=== PATIENT | male | born 1930 | race Caucasian/White ===

== ENCOUNTER 2017-06-12 17:08 | Inpatient (IN) | payer BC, OTHER ==
[~2017-06-12] VITALS: Ht 177.8 cm; Wt 96.2 kg
[2017-06-12 18:49] VITALS: BP 145/73; PULSE 98; TEMP 36.5; Ht 177.8 cm; Wt 96.2 kg
[2017-06-12] MEDS ORDERED: ONDANSETRON INJ 2 MG/ML 2 ML VIAL IV PRN (19:00)
[2017-06-12] MEDS ORDERED: MAGNESIUM HYDROXIDE SUSP 30 ML UDC PO PRN (19:00)
[2017-06-12] MEDS ORDERED: POLYETHYLENE (MIRALAX) 17 GM PACK PO PRN (19:00)
[2017-06-12] MEDS ORDERED: ALUMINUM/MAGNESIUM/SIMETH (MAALOX MAX) 30 ML UDC PO PRN (19:00)
[2017-06-12] MEDS ORDERED: DIGO30TA PO (19:10)
[2017-06-12] MEDS ORDERED: ASPEC81 PO (19:10)
[2017-06-12] MEDS ORDERED: FIBER PO (19:10)
[2017-06-12] MEDS ORDERED: MULT-190 PO (19:10)
[2017-06-12] MEDS ORDERED: FURO-85 PO (19:10)
[2017-06-12] MEDS ORDERED: GLC/500 PO (19:10)
[2017-06-12] MEDS ORDERED: MULT-589 PO (19:10)
[2017-06-12] MEDS ORDERED: CRD200 PO (19:10)
[2017-06-12] MEDS ORDERED: TAMS0.4C38 PO (19:10)
[2017-06-12] MEDS ORDERED: FERR324T PO (19:10)
[2017-06-12] MEDS ORDERED: FAMO20TA9 PO (19:10)
[2017-06-12] MEDS ORDERED: DOCU-94 PO (19:10)
[2017-06-12] MEDS ORDERED: CARB25TA12 PO (19:10)
[2017-06-12] MEDS ORDERED: LORA10TA5 PO (19:10)
[2017-06-12] MEDS ORDERED: TPRSR25 PO (19:10)
[2017-06-12] MEDS ORDERED: FINA5TAB4 PO (19:10)
[2017-06-12] MEDS ORDERED: PATIENT'S ALLERGY INFO NEEDS ENTERED SCH (19:15)
--- NOTE | 2017-06-12 19:23 | History and Physical ---
History & Physical Date of Service Jun 12, 2017. History & Physical admit #[id number]
[2017-06-12 20:00] VITALS: O2SAT 87
--- NOTE | 2017-06-12 20:37 | HISTORY & PHYSICAL EXAMINATION ---
DATE OF ADMISSION: 06/12/2017 ADMISSION HISTORY AND PHYSICAL CHIEF COMPLAINT: Hematuria. HISTORY OF PRESENT ILLNESS: The patient is a very pleasant 86-year-old male transferred up from [facility] due to lack of urology services of that facility. He had presented to [facility]'s ER on June 09 with what appeared to be an acute exacerbation of chronic systolic CHF. Initially, there was concern on PE in the ER because of an elevated D-dimer and he was given 1.5 mg/kg of Lovenox subQ x1, but then whenever it was determined that he was really in more of a CHF exacerbation, this was not continued, but he was given Lasix and he had had a Dodd placed. Unfortunately, with all of this, he has had rather significant hematuria and for several days now at [facility] while his CHF exacerbation has been improving to where today even feels like his breathing is basically back to his normal. He is continuing to have gross hematuria, clots and even a degree of bladder obstruction in spite of the Dodd catheter and in spite of days of continuous bladder irrigation. Urology was consulted to see him there and unfortunately at the service that is not there everyday of the week and for whatever reason the urologist who was going to be seeing him there was not able to be there and because of the ongoing hematuria and the need for urology evaluation, we have to accept him in transfer. He notes from a shortness of breath standpoint, he basically feels like his normal self again, his breathing is at his baseline, he has no chest pain or pressure. He feels pretty good. His only real complaint is the hematuria. REVIEW OF SYSTEMS: Negative except for as above. PAST MEDICAL HISTORY: Includes chronic systolic CHF with an EF around 20-25%, coronary artery disease for the previously totally occluded RCA on catheterization in 2014, only mild disease on the left at that time; type 2 diabetes, CKD stage III, parkinsonism, memory difficulties, BPH, hyperlipidemia, mitral regurge and moderately increased pulmonary artery pressure. HOME MEDICATIONS: Claritin 10 mg daily, Flomax 0.4 at bedtime, iron 325 daily, amiodarone 200 mg b.i.d., digoxin 0.125 every other day, metoprolol 12.5 b.i.d., aspirin 81 mg daily, Sinemet 25/100 q.i.d., Lasix 20 mg daily, Fiber-Lax 2 tabs daily, Colace 100 mg b.i.d., Pepcid 20 mg daily, metformin 500 mg daily, multivitamin daily, Proscar 5 mg daily, and PreserVision 1 capsule b.i.d. On review of his medication list at [facility], it looks like he was given additional Lasix IV once and that improved his CHF as otherwise it appears predominantly he was being maintained on his home medication list. ALLERGIES: LISTED PENICILLIN, ATENOLOL, CHRISTOPHER INHIBITORS, AMLODIPINE, ATORVASTATIN, CLONIDINE, FELODIPINE, GEMFIBROZIL, NIACIN, RED DYE AND YELLOW DYE, although the reactions to almost everything are uncertain WITH THE EXCEPTION OF ATENOLOL BEING LISTED A REACTION OF BRADYCARDIA. SOCIAL HISTORY: He does not smoke or drink. He lives at [facility]. Previously, he was a resident of [facility] and worked at [employer]. FAMILY HISTORY: Both sides with diabetes. Dad had an VT. PAST SURGICAL HISTORY: Heart catheterization as above and a surgical repair of the right arm after an accident. PHYSICAL EXAMINATION: VITAL SIGNS: His most recent vitals I confined from [facility] showed a temp of 97.6, heart rate 71, blood pressure 115/53, 99% on 3 liters, respiratory rate 20. GENERAL: He is awake, alert, oriented x3, pleasant, in no acute distress. HEENT: Normocephalic, atraumatic. Mucous membranes are moist. CARDIOVASCULAR: Irregularly irregular with a rate control; no rubs, murmurs, or gallops, although it is somewhat distant. LUNGS: Somewhat diminished at the left base without rales, rhonchi or wheezes, otherwise clear to auscultation bilaterally. No rales, rhonchi, or wheezes with good effort. ABDOMEN: Soft, nondistended, nontender, no masses or organomegaly. GENITOURINARY: He has a Dodd catheter in place with grossly bloody urine. No clots at this time. EXTREMITIES: Show no cyanosis, clubbing or edema. No calf tenderness. SKIN: Shows no rashes, no pallor or icterus. NEUROLOGIC: Shows cranial nerves II-XII to be grossly intact. Gross motor and sensory are intact. He is somewhat slow to respond, has a little bit of a quiet voice and a little bit of a masked face. MUSCULOSKELETAL: Yields no gross lesions. MENTAL STATE: Shows good recent and remote recall overall normal mood and affect, good judgment and insight. LABORATORIES AND DIAGNOSTICS: His most recent labs and diagnostics showed EKG with sinus at 81, borderline first degree AV block, no notable ischemic changes. Most recent basic metabolic panel yesterday showed a sodium 145, potassium 4.3, chloride 109, CO2 27, BUN 49, creatinine 1.7 that appears to be around what his baseline has been running during that hospital stay, mag of 2.4, calcium 8.2. His most recent CBC shows a white count of 7.8, hemoglobin 8.4 with an MCV of 102.3, platelets of 76, which I am told this is his stable baseline. ASSESSMENT AND PLAN: 1. Hematuria. It appears likely due to benign prostatic hypertrophy, Dodd placement and anticoagulation. His anticoagulation has been held for days. He has been on continuous bladder irrigation for at least a day, maybe more, according to the hospitalist at [facility] and at this point in time they needed urology intervention, which was not available. Will continue bladder irrigation and hold his aspirin as well and ask urology to see him and continue to follow him clinically. Nothing about this appears infectious, but will obviously follow closely. 2. Acute on chronic systolic congestive heart failure. He now appears to be back to his baseline. Will simply continue his home medications. 3. Coronary artery disease with ischemic cardiomyopathy. He is asymptomatic. Continue his home medications. 4. Type 2 diabetes, with his chronic kidney disease, we will be holding his metformin. Check an A1c. Hopefully, be able to discontinue all diabetes medications if his A1c is reasonable for his age and comorbidities. In the meantime, check fingersticks and supplemental insulin as needed. 5. Chronic kidney disease stage III, appears to be around his baseline. 6. Macrocytic anemia. Appears stable, will obviously want to continue to follow with the hematuria and with macrocytosis. We will check a B12 and a folate. 7. Hypocalcemia. Check a vitamin D. 8. Deep venous thrombosis prophylaxis. Pharmacologic is obviously contraindicated due to his hematuria. Mechanical prophylaxis would be of dubious benefit and possible harm including skin breakdown and fall risk. 9. Paroxysmal atrial fibrillation. Continue his beta meghna. He has clearly had multiple discussions with his typewriter operator automatic, Dr. Greco, and clearly does not want any anticoagulation long-term, in the short term it is certainly not possible anyway because of his hematuria. 10. Benign prostatic hypertrophy, right now he has got a Dodd drainage, but we will maintain his Flomax. 11. Disposition: He was admitted to telemetry because of the fact that that was the unit he was at the [facility] and they are continuing to monitor him closely for his congestive heart failure. He does look stable enough that as long as this is truly his new steady state, likely will be able to move him to med/surge over the coming hours.
[2017-06-12] MEDS: INSULIN ASPART 100 UNITS/ML 3 ML PEN SC SCH (21:00)
[2017-06-12] MEDS: DOCUSATE SODIUM 100 MG CAP PO SCH (21:08)
[2017-06-12] MEDS: FAMOTIDINE 20 MG TAB PO SCH (21:09)
[2017-06-12] MEDS: CARBIDOPA/LEVODOPA 25/100MG TAB PO SCH (21:09)
[2017-06-12] MEDS: AMIODARONE 200 MG TAB PO SCH (21:09)
[2017-06-12] MEDS: METOPROLOL SUCC 25MG EXT REL TAB PO SCH (21:10)
[2017-06-12 21:14] VITALS: BP 128/57; PULSE 93; O2SAT 87
[2017-06-12 23:33] VITALS: BP 113/63; PULSE 95; TEMP 36.6; O2SAT 98
[2017-06-13] VITALS (9 sets, daily range): BP systolic 117–143; BP diastolic 49–74; PULSE 88–108; TEMP 36.7–37.9; O2SAT 93–96
[2017-06-13 06:10] LABS: BASO % 0.1 %; BASO ABS # 0.01 K/uL (0-0.2); BUN/CREATININE RATIO 25.4 (10-20); CALCIUM 8.7 mg/dl (8.5-10.1); COMPLETE YES; CREATININE 1.5 mg/dl (0.60-1.40); EOS % 0.6 %; HEMATOCRIT 28.8 % (42-52); IG% 0.9 %; LYMPH % 6.3 %; LYMPH ABS # 0.63 K/uL (1.2-3.4); MEAN CELL VOLUME 102.5 fL (80-100); MEAN CORPUSCULAR HEMOGLOBIN 32.4 pg (25-34); MEAN CORPUSCULAR HGB CONC 31.6 g/dl (32-36); MEAN PLATELET VOLUME 13.7 fL (7.4-10.4); MONO % 6.6 %; NEUT % 85.5 %; PLATELET COUNT 104 K/uL (130-400); PLT ESTIMATE DECREASED; RED BLOOD COUNT 2.81 M/uL (4.7-6.1)
[2017-06-13] MEDS: INSULIN ASPART 100 UNITS/ML 3 ML PEN SC SCH ×4 (07:00→20:12)
[2017-06-13 07:09] LABS: ESTIMATED AVERAGE GLUCOSE 117 mg/dl; HA1C FLAG Normal (Normal)
[2017-06-13] MEDS: MULTIVITAMIN TAB PO SCH (07:54)
[2017-06-13] MEDS: FERROUS GLUCONATE 324 MG TAB PO SCH (07:54)
[2017-06-13] MEDS: FINASTERIDE 5 MG TAB PO SCH (07:54)
[2017-06-13] MEDS: CALCIUM POLYCARBOPHIL 1 TAB PO SCH (07:54)
[2017-06-13] MEDS: LORATADINE 10 MG TAB PO SCH (07:55)
[2017-06-13] MEDS: FUROSEMIDE 20 MG TAB PO SCH (07:55)
[2017-06-13] MEDS: CEROVITE ADV FORMULA TAB PO SCH (07:55)
[2017-06-13] MEDS: TAMSULOSIN HCL 0.4 MG CAP PO SCH (07:55)
[2017-06-13] MEDS: METOPROLOL SUCC 25MG EXT REL TAB PO SCH ×2 (07:55→20:20)
[2017-06-13] MEDS: AMIODARONE 200 MG TAB PO SCH ×2 (07:56→20:14)
[2017-06-13] MEDS: DOCUSATE SODIUM 100 MG CAP PO SCH ×2 (07:56→20:13)
[2017-06-13] MEDS: FAMOTIDINE 20 MG TAB PO SCH ×2 (07:56→20:15)
[2017-06-13] MEDS: CARBIDOPA/LEVODOPA 25/100MG TAB PO SCH ×4 (07:56→20:15)
--- NOTE | 2017-06-13 09:23 | Clinical Documentation Query ---
LEYLA Valentin : CLINICAL DOCUMENTATION QUERY Documentation includes "Acute on chronic systolic congestive heart failure. He now appears to be back to his baseline. Will simply continue his home medications". As appropriate, consider documentation as suggested below as capture of the acuity of this diagnosis may not be appropriate as documented in the H&P, and may not stand up to external audit/be denied for reimbursement and reporting purposes. In your clinical opinion is this patient being managed for: (x ) Chronic systolic CHF ( ) Not Agree ( ) Other explanation of clinical findings (Please Explain) ( ) Unable to determine (Please Define) ( ) Need to Discuss The medical record reflects the following clinical findings, treatment, and risk factors. Please clarify and document your clinical opinion in the progress notes and discharge summary. Terms such as "probable", "suspected", "likely", "questionable", "possible", or "still to be ruled out" are acceptable. IF IN AGREEMENT, YOU MUST DOCUMENT ABOVE DIAGNOSTIC STATEMENT IN DAILY PROGRESS NOTES AND DISCHARGE SUMMARY. This document is not part of the patient's record. Thank You, Scout Hawk, RN [phone]
--- NOTE | 2017-06-13 10:25 | DIAGNOSTIC IMAGING REPORT ---
ABDOMEN AND PELVIS CT WITHOUT CONTRAST CT DOSE: 1693.69 mGy.cm HISTORY: gross hematuria; CR 1.5 TECHNIQUE: Multiaxial CT images of the abdomen and pelvis were performed without the use of intravenous and oral contrast according to the standard department stone protocol. A dose lowering technique was utilized adhering to the principles of ALARA. COMPARISON STUDY: None. FINDINGS: The heart is mildly enlarged. Small bilateral pleural effusions which results in partial compressive atelectasis of the bilateral lower lobes. Small fat-containing bilateral inguinal hernias. Left L5 spondylolysis. No suspicious lytic or blastic osseous lesions. Multiple hypodense lesions seen throughout the liver with the dominant lesion within the right hepatic lobe measuring 5 cm. These are highly suspicious for metastatic disease. The spleen, right adrenal gland are unremarkable. Nodular appearance to the left adrenal gland. Hyperdense material within the gallbladder favors small stones. Calcifications within the kidneys appear to represent vascular calcifications. No definite renal or ureteral calculi. No hydronephrosis. There is an IVC filter present. There are 2 small cystic foci within the body of the pancreas. These measure 10 and 11 mm in size. No pancreatic duct dilatation. No retroperitoneal lymphadenopathy. Subcentimeter periportal lymph nodes do not meet CT criteria for pathologic involvement. The prostate gland is enlarged measuring 6.8 cm. Dodd catheter within the bladder. Hyperdense material within the bladder lumen consistent with blood products in the setting of hematuria. Small amount of gas within the bladder due to the catheterization. Moderate bladder wall thickening with mild surrounding fat stranding. No evidence for bowel obstruction. Questionable thickening within the ascending colon near the ileocecal valve. There is also focal area of soft tissue prominence at the ileocolic lymph node station best seen on image 243. This could represent developing ileocolic lymphadenopathy. Prominent right common iliac lymph node which contains fat. This measures 15 x 12 mm. IMPRESSION: 1. Multiple hepatic masses. This is consistent with metastatic disease until present otherwise. 2. Small area of ill-defined soft tissue prominence at the right ileocolic station raises the possibility of developing lymphadenopathy. There is also questionable thickening within the ascending colon near the ileocecal valve. This is difficult to assess due to the lack of contrast but raises the possibility of a colonic mass as the primary malignancy. Colonoscopy is recommended for further evaluation. 3. Moderate thickening of the bladder wall with mild surrounding fat stranding. There is also small amount of hemorrhage within the bladder consistent with the patient's history of hematuria. 4. No renal or ureteral stones. No hydronephrosis. 5. Enlarged prostate. 6. Small bilateral pleural effusions. 7. There are 2 small cystic foci/lesions within the pancreatic body with the largest measuring 11 mm. 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 8. Additional findings as described above. Electronically signed by: Alexander Espinal M.D. 06/13/2017 10:24 AM Dictated Date/Time: 06/13/2017 10:07 AM
[2017-06-13] MEDS: ERGOCALCIFEROL 50,000 INTER.UNIT CAP PO SCH (12:20)
--- NOTE | 2017-06-13 14:19 | Urology Consultation ---
History General Date of Service: Jun 13, 2017. Chief Complaint: gross hematuria Primary Care Physician: No Doctor, Assigned Pt seen a urologist before?: Yes (Dr. Serrano, Dr. Jarocho Gallegos, urology at [facility]) If yes, why?: BPH, elevated PSA History of Present Illness 86 yo male accepted as transfer from [facility] d/t gross hematuria and lack of daily urology service there. Currently with mayberry catheter in place and CBI running. Mayberry draining yellow- light orange urine. Per the pt, the hematuria started ~3 days ago. H&H of 9.1 and 28.8. Cr noted to be 1.5. He has a hx of CKD stage III. The pt denies pain this morning. He has seen urology in the past for BPH with incomplete bladder emptying and elevated PSA. Per the pt, he has seen Dr. Serrano, Dr. Jarocho Gallegos, and another urologist near [facility]. Per my records, he last saw Dr. Gallegos in 2015 for BPH with incomplete emptying and elevated PSA. PVR at that time noted to be 200ml. He remains on maximal medical therapy of tamsulosin and finasteride for his BPH. PSA while inpatient noted to be 10.5. Per previous records, it has been as high as 12 at one point, and the pt has had multiple negative prostate biopsies. I have ordered a CT, cytology, and UC&S while inpatient for further evaluation of his gross hematuria. CT scan showing suspected metastatic colon cancer. Findings discussed with Dr. Mabry. Dr. Mabry waiting to discuss with the pt when his son is available. Imaging Imaging: CT Laboratory Last 24 Hours Test 06/12/17 20:33 06/13/17 05:10 06/13/17 06:46 06/13/17 11:47 Bedside Glucose 151 mg/dl 157 mg/dl 135 mg/dl White Blood Count 10.00 K/uL Red Blood Count 2.81 M/uL Hemoglobin 9.1 g/dL Hematocrit 28.8 % Mean Corpuscular Volume 102.5 fL Mean Corpuscular Hemoglobin 32.4 pg Mean Corpuscular Hemoglobin Concent 31.6 g/dl Platelet Count 104 K/uL Mean Platelet Volume 13.7 fL Neutrophils (%) (Auto) 85.5 % Lymphocytes (%) (Auto) 6.3 % Monocytes (%) (Auto) 6.6 % Eosinophils (%) (Auto) 0.6 % Basophils (%) (Auto) 0.1 % Neutrophils # (Auto) 8.55 K/uL Lymphocytes # (Auto) 0.63 K/uL Monocytes # (Auto) 0.66 K/uL Eosinophils # (Auto) 0.06 K/uL Basophils # (Auto) 0.01 K/uL RDW Standard Deviation 60.6 fL RDW Coefficient of Variation 16.2 % Immature Granulocyte % (Auto) 0.9 % Immature Granulocyte # (Auto) 0.09 K/uL Platelet Estimate DECREASED Red Blood Cell Morphology Unremarkable Sodium Level 146 mmol/L Potassium Level 4.0 mmol/L Chloride Level 111 mmol/L Carbon Dioxide Level 29 mmol/L Anion Gap 6.0 mmol/L Blood Urea Nitrogen 38 mg/dl Creatinine 1.50 mg/dl Est Creatinine Clear Calc Drug Dose 40.4 ml/min Estimated GFR () 47.8 Estimated GFR (Non- 41.3 BUN/Creatinine Ratio 25.4 Random Glucose 158 mg/dl Estimated Average Glucose 117 mg/dl Hemoglobin A1c 5.7 % Calcium Level 8.7 mg/dl Prostate Specific Antigen 10.500 ng/ml Vitamin B12 Level 1084 pg/mL 25-Hydroxy Vitamin D Total 15.3 ng/ml Folate > 24.00 ng/mL Digoxin Level 0.6 ng/ml Past History BPH, congestive heart failure, coronary artery disease, diabetes, high cholesterol, other (CKD stage 3, Parkinson's disease, memory issues, mirtral regurgitation) Past Surgical History: cardiac catheterization, orthopedic surgery (arm surgery after accident) Family History diabetes, [place] Social History Hx Tobacco Use In Past Year?: No Smoking: non-smoker Alcohol: never Drug use: none Housing status: half-way Occupation status: retired Allergies Coded Allergies: CHRISTOPHER Inhibitors (Unverified Allergy, Unknown, Uncertain, 06/12/17) Amlodipine (Unverified Allergy, Unknown, Uncertain, 06/12/17) Atorvastatin (Unverified Allergy, Unknown, Uncertain, 06/12/17) Clonidine (Unverified Allergy, Unknown, Uncertain, 06/12/17) Felodipine (Unverified Allergy, Unknown, Uncertain, 06/12/17) Gemfibrozil (Unverified Allergy, Unknown, Uncertain, 06/12/17) Niacin (Unverified Allergy, Unknown, Uncertain, 06/12/17) Penicillins (Unverified Allergy, Unknown, Uncertain, 06/12/17) Red Dye (Unverified Allergy, Unknown, Uncertain, 06/12/17) Yellow Dye (Unverified Allergy, Unknown, Uncertain, 06/12/17) Atenolol (Unverified Adverse Reaction, Unknown, BRADYCARDIA, 06/12/17) Medications Home Medications: Home Meds and Scripts Medications Dose Route/Sig Max Daily Dose Days Date Category Ocuvite Preservision (Multivitamins/Minerals) 1 Tab Tab 1 Tab PO DAILY 06/12/17 Rx Proscar (Finasteride) 5 Mg Tab 1 Tab PO DAILY 90 06/12/17 Rx Daily Gregg (Multivitamins) 1 Tab Tab 1 Tab PO DAILY 06/12/17 Rx Glucophage (Metformin Hcl) 500 Mg Tab 500 Mg PO DAILY 06/12/17 Rx Pepcid (Famotidine) 20 Mg Tab 1 Tab PO BID 30 06/12/17 Rx Colace (Docusate Sodium) 100 Mg Cap 1 Cap PO BID 15 06/12/17 Rx Fiber Laxative (Fiber) Ea 2 Tab PO DAILY 06/12/17 Rx Lasix (Furosemide) 20 Mg Tab 20 Mg PO DAILY 06/12/17 Rx Sinemet 25MG/100MG (Carbidopa/Levodopa) Tab 1 Tab PO QID 06/12/17 Rx Aspirin EC Low Dose (Aspirin) 81 Mg Ectab 1 Tab PO DAILY 06/12/17 Rx Metoprolol Succinate ER (Metoprolol Succinate) 25 Mg Tabcr 0.5 Tab PO BID 06/12/17 Rx Digitek (Digoxin) 0.125 Mg Tab 1 Tab PO Q2D 06/12/17 Rx Amiodarone HCl 200 Mg Tab 200 Mg PO BID 06/12/17 Rx Iron Supplement (Ferrous Gluconate) 324 Mg Tab 324 Mg PO DAILY 06/12/17 Rx Flomax (Tamsulosin Hcl) 0.4 Mg Cap 1 Cap PO DAILY 30 06/12/17 Rx Claritin (Loratadine) 10 Mg Tab 1 Tab PO DAILY 30 06/12/17 Rx Inpatient Medications: Current Inpatient Medications Medications (Trade) Dose Ordered Sig/Aniya Route Start Time Stop Time Status Last Admin Dose Admin Acetaminophen (Tylenol Tab) 650 mg Q4H PRN PO 06/12/17 19:00 07/12/17 18:59 Al Hydrox/Mg Hydrox/Simethicone (Maalox Max Susp) 15 ml Q4H PRN PO 06/12/17 19:00 07/12/17 18:59 Magnesium Hydroxide (Milk Of Magnesia Susp) 30 ml Q12H PRN PO 06/12/17 19:00 07/12/17 18:59 Ondansetron HCl (Zofran Inj) 4 mg Q6H PRN IV 06/12/17 19:00 07/12/17 18:59 Polyethylene (Miralax Powder Packet) 17 gm DAILY PRN PO 06/12/17 19:00 07/12/17 18:59 Amiodarone HCl (Cordarone Tab) 200 mg BID PO 06/12/17 21:00 07/12/17 20:59 06/13/17 07:56 200 MG Carbidopa/Levodopa (Sinemet 25/ 100MG Tab) 1 tab QID PO 06/12/17 21:00 07/12/17 20:59 06/13/17 12:20 1 TAB Digoxin (Lanoxin Tab) 0.125 mg Q2D@1600 PO 06/13/17 16:00 07/13/17 15:59 Docusate Sodium (coLACE CAP) 100 mg BID PO 06/12/17 21:00 07/12/17 20:59 06/13/17 07:56 100 MG Famotidine (Pepcid Tab) 20 mg BID PO 06/12/17 21:00 07/12/17 20:59 06/13/17 07:56 20 MG Ferrous Gluconate (Ferrous Gluconate Tab) 324 mg DAILY PO 06/13/17 09:00 07/13/17 08:59 06/13/17 07:54 324 MG Finasteride (Proscar Tab) 5 mg DAILY PO 06/13/17 09:00 07/13/17 08:59 06/13/17 07:54 5 MG Furosemide (Lasix Tab) 20 mg DAILY PO 06/13/17 09:00 07/13/17 08:59 06/13/17 07:55 20 MG Loratadine (Claritin Tab) 10 mg DAILY PO 06/13/17 09:00 07/13/17 08:59 06/13/17 07:55 10 MG Metoprolol Succinate (Toprol Xl Tab) 12.5 mg BID PO 06/12/17 21:00 07/12/17 20:59 06/13/17 07:55 12.5 MG Multivitamins (Multivitamin Tab) 1 tab DAILY PO 06/13/17 09:00 07/13/17 08:59 06/13/17 07:54 1 TAB Multivitamins/ Minerals (Multivitamin W/ Minerals Tab) 1 tab DAILY PO 06/13/17 09:00 07/13/17 08:59 06/13/17 07:55 1 TAB Tamsulosin HCl (Flomax Cap) 0.4 mg DAILY PO 06/13/17 09:00 07/13/17 08:59 06/13/17 07:55 0.4 MG Calcium Polycarbophil (Fibercon Tab) 2 tab DAILY PO 06/13/17 09:00 07/13/17 08:59 06/13/17 07:54 2 TAB Insulin Aspart (novoLOG ASPART) SLIDING SCALE G... ACHS SC 06/12/17 21:00 07/12/17 20:59 Ergocalciferol (Vitamin D Cap) 50,000 interunit TuTh@0900 PO 06/13/17 11:00 07/13/17 10:59 06/13/17 12:20 50,000 INTERUNIT Furosemide 20 mg/ Syringe 2 ml @ 4 mls/min 1600 ONCE IV 06/13/17 16:00 06/13/17 16:01 Review of Systems Review of Systems Constitutional: No fever, No chills Eyes: No double vision Neurological: No dizzy Endocrine: No excessive thirst Gastrointestinal: No abdominal pain, No nausea, No vomiting Cardiovascular: No chest pain Respiratory: No shortness of breath Skin: No rash Musculoskeletal: + arthritis Male : + blood in urine Physical Exam Vital Signs: Vital Signs Past 12 Hours Date Time Temp Pulse Resp B/P (MAP) Pulse Ox O2 Delivery O2 Flow Rate FiO2 06/13/17 12:00 Nasal Cannula 2.0 06/13/17 11:49 37.1 108 20 140/59 (86) 96 Nasal Cannula 2.0 06/13/17 08:00 Nasal Cannula 2.0 06/13/17 07:23 36.7 105 20 143/74 (97) 95 Nasal Cannula 2.0 06/13/17 04:24 37.5 100 18 128/62 (84) 95 Nasal Cannula 1.0 06/13/17 04:00 Nasal Cannula 1.0 Physical Exam: General Appearance: no apparent distress Eyes: bilateral eyes normal inspection ENT: hearing grossly normal Neck: no JVD Respiratory/Chest: no respiratory distress, no accessory muscle use Cardiovascular: no JVD Extremities: normal inspection Neurologic/Psychiatric: alert, normal mood/affect, oriented x 3 Skin: normal color Assessment & Plan Assessment & Plan A/P: Gross hematuria, BPH AFVSS. Hematuria improving. Will continue CBI today. I have asked the nursing staff to hand irrigate the mayberry catheter qshift and PRN for clots. Continue to monitor H&H. Supportive management with transfusions PRN. Will await cytology and UC&S results. The pt will likely need cysto to complete his hematuria evaluation, but his probable metastatic colon cancer is a priority to be addressed at this time. No surgical management planned at this time. The pt may be provided a diet when OK with primary service. Continue finasteride and tamsulosin. Thanks for the consult. Will continue to follow along with primary service.
[2017-06-13] MEDS: DIGOXIN 0.125 MG TAB PO SCH (15:29)
[2017-06-13] MEDS: ACETAMINOPHEN 325 MG TAB PO PRN (15:38)
[2017-06-13] MEDS ORDERED: FUROSEMIDE INJ 20 MG in SYRINGE 0 ML IV ONE (16:00)
--- NOTE | 2017-06-13 20:54 | Progress Note ---
Subjective Date of Service: Jun 13, 2017. Subjective Pt evaluation today including: conversation w/ patient (twice today), conversation w/ family (son, Dakota, by phone twice today), physical exam, chart review, lab review, review of studies (records from [facility] reviewed; CT scan reviewed here), conversation w/ apartment leasing consultant (radiology, urology), review of inpatient medication list Pain: denies any abd pain or pelvic pain PO Intake: no issues Voiding: mayberry catheter in place (with CBI) tele overnight with juan loco, rates mainly controlled he denies any recent overt GI bleeding (BRBPR or melena) has had bowel habit changes and issues with constipation no apparent weight loss and appetite has been ok back at [facility] in [place] still with O2 requirement and still with mild dyspnea no chest pain Review of Systems Constitutional: No fever, No chills Respiratory: + dyspnea at rest, No cough Cardiac: + orthopnea, No chest pain Abdomen: + constipation, No pain, No nausea, No vomiting, No diarrhea, No GI bleeding Objective Vital Signs Date Time Temp Pulse Resp B/P (MAP) Pulse Ox O2 Delivery O2 Flow Rate FiO2 06/13/17 20:17 104 122/55 (77) 06/13/17 19:40 36.8 103 18 117/49 (71) 93 Nasal Cannula 2.0 06/13/17 17:19 37.9 06/13/17 16:00 95 Nasal Cannula 2.0 06/13/17 15:30 37.3 88 16 117/49 (71) 95 Nasal Cannula 2.0 06/13/17 15:29 76 06/13/17 12:00 Nasal Cannula 2.0 06/13/17 11:49 37.1 108 20 140/59 (86) 96 Nasal Cannula 2.0 06/13/17 08:00 Nasal Cannula 2.0 06/13/17 07:23 36.7 105 20 143/74 (97) 95 Nasal Cannula 2.0 06/13/17 04:24 37.5 100 18 128/62 (84) 95 Nasal Cannula 1.0 06/13/17 04:00 Nasal Cannula 1.0 06/12/17 23:59 Nasal Cannula 1.0 06/12/17 23:33 36.6 95 18 113/63 (80) 98 Nasal Cannula 1.0 06/12/17 21:14 93 128/57 (80) 87 Room Air Physical Exam General Appearance: no apparent distress ENT: pharynx normal, + pertinent finding (hearing aids in place) Neck: + JVD Respiratory/Chest: no respiratory distress, no accessory muscle use, + rales ( bibasilar) Cardiovascular: no gallop, + systolic murmur (LSB), + irregularly irregular Abdomen: normal bowel sounds, non tender, soft, no organomegaly Extremities: + pedal edema (trace b/l ) Neurologic/Psychiatric: alert, oriented x 3 Laboratory Results Last 24 Hours Test 06/13/17 05:10 06/13/17 06:46 06/13/17 11:47 06/13/17 16:16 White Blood Count 10.00 K/uL Red Blood Count 2.81 M/uL Hemoglobin 9.1 g/dL Hematocrit 28.8 % Mean Corpuscular Volume 102.5 fL Mean Corpuscular Hemoglobin 32.4 pg Mean Corpuscular Hemoglobin Concent 31.6 g/dl Platelet Count 104 K/uL Mean Platelet Volume 13.7 fL Neutrophils (%) (Auto) 85.5 % Lymphocytes (%) (Auto) 6.3 % Monocytes (%) (Auto) 6.6 % Eosinophils (%) (Auto) 0.6 % Basophils (%) (Auto) 0.1 % Neutrophils # (Auto) 8.55 K/uL Lymphocytes # (Auto) 0.63 K/uL Monocytes # (Auto) 0.66 K/uL Eosinophils # (Auto) 0.06 K/uL Basophils # (Auto) 0.01 K/uL RDW Standard Deviation 60.6 fL RDW Coefficient of Variation 16.2 % Immature Granulocyte % (Auto) 0.9 % Immature Granulocyte # (Auto) 0.09 K/uL Platelet Estimate DECREASED Red Blood Cell Morphology Unremarkable Sodium Level 146 mmol/L Potassium Level 4.0 mmol/L Chloride Level 111 mmol/L Carbon Dioxide Level 29 mmol/L Anion Gap 6.0 mmol/L Blood Urea Nitrogen 38 mg/dl Creatinine 1.50 mg/dl Est Creatinine Clear Calc Drug Dose 40.4 ml/min Estimated GFR () 47.8 Estimated GFR (Non- 41.3 BUN/Creatinine Ratio 25.4 Random Glucose 158 mg/dl Estimated Average Glucose 117 mg/dl Hemoglobin A1c 5.7 % Calcium Level 8.7 mg/dl Prostate Specific Antigen 10.500 ng/ml Vitamin B12 Level 1084 pg/mL 25-Hydroxy Vitamin D Total 15.3 ng/ml Folate > 24.00 ng/mL Digoxin Level 0.6 ng/ml Bedside Glucose 157 mg/dl 135 mg/dl 128 mg/dl Test 06/13/17 20:10 Bedside Glucose 164 mg/dl Assessment and Plan 86yo male: 1. gross hematuria - this occurred in the setting of recent mayberry catheter placement (was difficult by history, likely due to BPH) and use of systemic anticoagulation (lovenox 1.5mg/kg per records). The hematuria has improved with CBI and H/H remain stable. Appreciate urology consult. CT abd/pelvis to assess for bladder pathology was negative for such but incidentally showed a possible colonic mass with liver mets (see below). CBC in am. No cystoscopy planned at this time. 2. acute/chronic systolic CHF - EF 20-25% by history - give another dose of IV lasix later today, repeat labs in AM, follow weights/UOP. Cont BB. 3. a. fib - chronically takes digoxin, metoprolol, and amiodarone. Was NOT taking systemic anticoagulation back at [facility]. Rates acceptable at this time. Dig level acceptable. Unsure if amiodarone is being used for rate control or to try & maintain NSR. Will leave as is for now. 4. CKD stage 3 - per records from outside hospital baseline Cr is 1.5-1.8. Repeat BMP am. 5. acute hypoxic resp failure 2nd to #2 - improving. 6. T2DM - novolog SSI for now. 7. macrocytic anemia - b12, folate normal; follow. 8. parkinsonism - continue sinemet. 9. BPH - continue finasteride & flomax. 10. DVT proph - SCDs; chemical means contraindicated due to #1. 11. vitamin D def - replace. 12. ?colonic mass with suspected liver mets - I had a lengthy discussion with the patient and his son. His son was on speaker phone during this discussion. I reviewed the CT results and what this could mean for his health. Discussed options - doing nothing vs attempting colonoscopy for definitive bx vs liver bx. I don't think it would be safe for him to undergo colonoscopy in light of decompensated CHF. Also, even once his CHF is improved, he would still be a poor colonoscopy candidate. If definitive dx is truly desired by the patient then radiology-assisted liver bx might be safest option. Will obtain RUQ u/s to further characterize liver lesions. 13. thrombocytopenia - recheck CBC am. 14. CAD - noted; no ischemic symptoms at this time. Will need PT, OT total time today about 60 minutes including 30 minute discussion with pt & his son, 20 minutes reviewing records, 10 minutes with exam/etc Continued [facility] stay due to: voiding difficulties, ambulation difficulties, multiple IV medications needed Discharge planning: [facility] facility
[2017-06-14] VITALS: BP 134/61; PULSE 94; TEMP 37.1; O2SAT 96
[2017-06-14 04:00] VITALS: BP 117/55; PULSE 98; TEMP 36.4; O2SAT 95
[2017-06-14 06:47] LABS: INR 1.1 (0.9-1.1)
--- NOTE | 2017-06-14 07:08 | DIAGNOSTIC IMAGING REPORT ---
ULTRASOUND RIGHT UPPER QUADRANT ABDOMEN CLINICAL HISTORY: Liver lesions seen by CT. COMPARISON STUDY: Abdominal CT dated 06/13/2017. TECHNIQUE: Real-time, grayscale, and color flow sonography of the right upper quadrant of the abdomen was performed. Images are reviewed in the transverse and longitudinal planes. FINDINGS: Liver: The liver is enlarged and demonstrates heterogeneously increased echotexture consistent with hepatic steatosis. There is no intrahepatic biliary ductal dilatation. The main portal vein is patent. There are numerous (greater than 20) hypoechoic hepatic lesions identified. The largest is in the left lobe and measures up to 5.0 cm. Gallbladder: Biliary sludge is identified. Small gallstones are suspected. There is no gallbladder wall thickening or pericholecystic fluid. A sonographic Ibrahim's sign is reportedly absent. The common bile duct measures up to 0.5 cm in diameter. Pancreas: There are hypoechoic ovoid nodules in the pancreas which measure up to 1.6 cm. 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 Visualized portions of the pancreatic head and body are otherwise normal in appearance. The splenic vein is patent. Right kidney: Survey images of the right kidney demonstrate cortical atrophy. There is no hydronephrosis. Ascites: None. IMPRESSION: 1. The liver is enlarged and steatotic. 2. There are numerous hypoechoic hepatic lesions identified. This corresponds to the abnormal CT finding. These lesions should be considered metastatic disease until proven otherwise. 3. Cholelithiasis and biliary sludge. There is no sonographic evidence of acute cholecystitis. 4. Hypoechoic ovoid lesions are seen in the pancreas. When correlated with yesterday's CT scan these likely represent small sidebranch IPMN's and are of doubtful significance. Electronically signed by: Stefan Bean M.D. 06/14/2017 7:07 AM Dictated Date/Time: 06/14/2017 7:02 AM
[2017-06-14 07:17] LABS: BUN/CREATININE RATIO 20.4 (10-20); CALCIUM 8.5 mg/dl (8.5-10.1); CREATININE 1.8 mg/dl (0.60-1.40)
[2017-06-14 07:26] LABS: HEMATOCRIT 27.3 % (42-52); MEAN CELL VOLUME 102.6 fL (80-100); MEAN CORPUSCULAR HEMOGLOBIN 32.7 pg (25-34); MEAN CORPUSCULAR HGB CONC 31.9 g/dl (32-36); MEAN PLATELET VOLUME 12.9 fL (7.4-10.4); PLATELET COUNT 94 K/uL (130-400); RED BLOOD COUNT 2.66 M/uL (4.7-6.1); WHITE BLOOD COUNT 11.35 K/uL (4.8-10.8)
[2017-06-14 07:27] LABS: BASO % 0.1 %; BASO ABS # 0.01 K/uL (0-0.2); COMPLETE YES; EOS % 0.4 %; IG% 0.8 %; LYMPH % 7.2 %; LYMPH ABS # 0.82 K/uL (1.2-3.4); MONO % 6.7 %; NEUT % 84.8 %; PLT ESTIMATE DECREASED; POLYCHROMASIA 1+
[2017-06-14 08:01] VITALS: BP 120/52; PULSE 104; TEMP 37.7; O2SAT 96
[2017-06-14] MEDS: INSULIN ASPART 100 UNITS/ML 3 ML PEN SC SCH ×4 (08:35→20:36)
[2017-06-14] MEDS: FINASTERIDE 5 MG TAB PO SCH (08:39)
[2017-06-14] MEDS: FAMOTIDINE 20 MG TAB PO SCH ×2 (08:39→20:31)
[2017-06-14] MEDS: CARBIDOPA/LEVODOPA 25/100MG TAB PO SCH ×4 (08:39→20:31)
[2017-06-14] MEDS: DOCUSATE SODIUM 100 MG CAP PO SCH ×2 (08:40→20:30)
[2017-06-14] MEDS: CALCIUM POLYCARBOPHIL 1 TAB PO SCH (08:40)
[2017-06-14] MEDS: FERROUS GLUCONATE 324 MG TAB PO SCH (08:40)
[2017-06-14] MEDS: LORATADINE 10 MG TAB PO SCH (08:40)
[2017-06-14] MEDS: MULTIVITAMIN TAB PO SCH (08:40)
[2017-06-14] MEDS: FUROSEMIDE 20 MG TAB PO SCH (08:40)
[2017-06-14] MEDS: CEROVITE ADV FORMULA TAB PO SCH (08:41)
[2017-06-14] MEDS: METOPROLOL SUCC 25MG EXT REL TAB PO SCH ×2 (08:41→20:35)
[2017-06-14] MEDS: AMIODARONE 200 MG TAB PO SCH ×2 (08:41→20:30)
[2017-06-14] MEDS: TAMSULOSIN HCL 0.4 MG CAP PO SCH (08:41)
--- NOTE | 2017-06-14 11:01 | Progress Note ---
Subjective Date of Service: Jun 14, 2017. (Radha King CRNP) Subjective Pt evaluation today including: conversation w/ patient, physical exam, chart review, lab review Voiding: mayberry catheter in place 86 year old male with gross hematuria. This has improved. Pt had CBI running- is currently clamped. Urine is light pink to clear without clot. Mayberry intact. Continues on flomax and finasteride. Urine culture is prelim positive for gm - bacilli. He is on IV ertapenem. H/H slightly dropped. 9.1/28.8 to 8.7/27.3 No transfusions needed. Creatinine is up from yesterday 1.5 to 1.8 Pt denies flank pain. Low grade temp this am. 37.7. Slightly tachcardic. BP is low but not impressive. (Radha King, ISABELLA) Review of Systems Constitutional: + see HPI, No chills ENT: No hearing loss Respiratory: No cough, No shortness of breath Cardiac: No chest pain Abdomen: No pain, No nausea Male : + see HPI, + hematuria (Radha King, ISABELLA) Objective Vital Signs Date Time Temp Pulse Resp B/P (MAP) Pulse Ox O2 Delivery O2 Flow Rate FiO2 06/14/17 08:01 37.7 104 20 120/52 (74) 96 Nasal Cannula 2.0 06/14/17 04:00 Nasal Cannula 2.0 06/14/17 04:00 36.4 98 20 117/55 (75) 95 Nasal Cannula 2.0 06/14/17 00:00 Nasal Cannula 2.0 06/14/17 00:00 37.1 94 20 134/61 (85) 96 Nasal Cannula 2.0 06/13/17 20:17 104 122/55 (77) 06/13/17 20:00 93 Nasal Cannula 2.0 06/13/17 19:40 36.8 103 18 117/49 (71) 93 Nasal Cannula 2.0 06/13/17 17:19 37.9 06/13/17 16:00 95 Nasal Cannula 2.0 06/13/17 15:30 37.3 88 16 117/49 (71) 95 Nasal Cannula 2.0 06/13/17 15:29 76 06/13/17 12:00 Nasal Cannula 2.0 06/13/17 11:49 37.1 108 20 140/59 (86) 96 Nasal Cannula 2.0 (Radha King CRNP) Physical Exam General Appearance: WD/WN, no apparent distress ENT: hearing grossly normal Respiratory/Chest: no respiratory distress, no accessory muscle use Abdomen: soft Extremities: no pedal edema, no calf tenderness Neurologic/Psychiatric: alert, normal mood/affect (Radha King CRNP) Laboratory Results Last 24 Hours Test 06/13/17 11:47 06/13/17 16:16 06/13/17 20:10 06/14/17 06:11 Bedside Glucose 135 mg/dl 128 mg/dl 164 mg/dl White Blood Count 11.35 K/uL Red Blood Count 2.66 M/uL Hemoglobin 8.7 g/dL Hematocrit 27.3 % Mean Corpuscular Volume 102.6 fL Mean Corpuscular Hemoglobin 32.7 pg Mean Corpuscular Hemoglobin Concent 31.9 g/dl Platelet Count 94 K/uL Mean Platelet Volume 12.9 fL Neutrophils (%) (Auto) 84.8 % Lymphocytes (%) (Auto) 7.2 % Monocytes (%) (Auto) 6.7 % Eosinophils (%) (Auto) 0.4 % Basophils (%) (Auto) 0.1 % Neutrophils # (Auto) 9.63 K/uL Lymphocytes # (Auto) 0.82 K/uL Monocytes # (Auto) 0.76 K/uL Eosinophils # (Auto) 0.04 K/uL Basophils # (Auto) 0.01 K/uL RDW Standard Deviation 59.6 fL RDW Coefficient of Variation 16.2 % Immature Granulocyte % (Auto) 0.8 % Immature Granulocyte # (Auto) 0.09 K/uL Nucleated RBC Absolute Count (auto) 0.02 K/uL Nucleated Red Blood Cells % 0.2 % Platelet Estimate DECREASED Polychromasia 1+ Prothrombin Time 12.0 SECONDS Prothromb Time International Ratio 1.1 Activated Partial Thromboplast Time 26.2 SECONDS Partial Thromboplastin Ratio 1.0 Sodium Level 145 mmol/L Potassium Level 4.0 mmol/L Chloride Level 109 mmol/L Carbon Dioxide Level 28 mmol/L Anion Gap 8.0 mmol/L Blood Urea Nitrogen 37 mg/dl Creatinine 1.80 mg/dl Est Creatinine Clear Calc Drug Dose 33.4 ml/min Estimated GFR () 38.4 Estimated GFR (Non- 33.1 BUN/Creatinine Ratio 20.4 Random Glucose 154 mg/dl Calcium Level 8.5 mg/dl Test 06/14/17 06:41 Bedside Glucose 171 mg/dl (Radha King CRNP) Assessment and Plan Gross Hematuria. CBI is stopped. Recommend keeping mayberry to monitor urine color for now and to hand irrigate as needed. Unfortunately his creatinine has started to rise. His temp in now low grade as well. His CT scan from yesterday showed no hydronephrosis and no stones. Will get renal u/s to rule out obstructive uropathy. With hx of metastatic colon cancer could be obstructing ureter. Urine culture is preliminary positive for gm neg bacilli- On IV ertapenem. Will continue to monitor along with primary service. Continued [facility] stay due to: voiding difficulties, ambulation difficulties, multiple IV medications needed Discharge planning: [facility] facility (Radha King CRNP)
[2017-06-14 11:21] VITALS: BP 124/63; PULSE 89; TEMP 37.2; O2SAT 98
[2017-06-14] MEDS: ERTAPENEM IV 1 GM in SODIUM CHLOR 0.9% AD-VAN 50ML 50 ML IV SCH (11:26)
[2017-06-14 15:58] VITALS: BP 125/56; PULSE 86; TEMP 37.2; O2SAT 98
[2017-06-14 19:51] VITALS: BP 109/64; PULSE 90; TEMP 36.9; O2SAT 96
[2017-06-14] MEDS: ACETAMINOPHEN 325 MG TAB PO PRN (20:46)
--- NOTE | 2017-06-14 20:58 | Progress Note ---
Subjective Date of Service: Jun 14, 2017. Subjective Pt evaluation today including: conversation w/ patient, conversation w/ family (son by phone), physical exam, chart review, lab review, review of studies (RUQ u/s), conversation w/ field technical support consultant (radiology), review of inpatient medication list Pain: no chest pain PO Intake: normal Voiding: mayberry catheter in place (with CBI) tele overnight with juan loco, largely rate controlled pt denies any cough or dyspnea this am last night after our family conversation re: his CT results showing probable metastatic cancer he thought about his options he is leaning towards doing the liver biopsy but likely will not pursue any definitive treatment if it does, in fact, show cancer gross hematuria is resolved low-grade fever this am Review of Systems Constitutional: + fever, No chills Respiratory: No cough, No dyspnea at rest, No hemoptysis Cardiac: No chest pain, No orthopnea Abdomen: No pain, No diarrhea, No GI bleeding Male : No hematuria Objective Vital Signs Date Time Temp Pulse Resp B/P (MAP) Pulse Ox O2 Delivery O2 Flow Rate FiO2 06/14/17 19:51 36.9 90 18 109/64 (79) 96 Room Air 06/14/17 16:00 Room Air 06/14/17 15:58 37.2 86 20 125/56 (79) 98 Nasal Cannula 2.0 06/14/17 12:00 Room Air 06/14/17 11:21 37.2 89 20 124/63 (83) 98 Nasal Cannula 2.0 06/14/17 08:30 Room Air 06/14/17 08:01 37.7 104 20 120/52 (74) 96 Nasal Cannula 2.0 06/14/17 04:00 Nasal Cannula 2.0 06/14/17 04:00 36.4 98 20 117/55 (75) 95 Nasal Cannula 2.0 06/14/17 00:00 Nasal Cannula 2.0 06/14/17 00:00 37.1 94 20 134/61 (85) 96 Nasal Cannula 2.0 Physical Exam General Appearance: no apparent distress ENT: pharynx normal Neck: no JVD Respiratory/Chest: no respiratory distress, no accessory muscle use, + rales ( minimal-bases) Cardiovascular: no gallop, no murmur, + irregularly irregular Abdomen: normal bowel sounds, non tender, soft, no organomegaly Extremities: no pedal edema Neurologic/Psychiatric: alert, oriented x 3 Laboratory Results Last 24 Hours Test 06/14/17 06:11 06/14/17 06:41 06/14/17 11:25 06/14/17 16:27 White Blood Count 11.35 K/uL Red Blood Count 2.66 M/uL Hemoglobin 8.7 g/dL Hematocrit 27.3 % Mean Corpuscular Volume 102.6 fL Mean Corpuscular Hemoglobin 32.7 pg Mean Corpuscular Hemoglobin Concent 31.9 g/dl Platelet Count 94 K/uL Mean Platelet Volume 12.9 fL Neutrophils (%) (Auto) 84.8 % Lymphocytes (%) (Auto) 7.2 % Monocytes (%) (Auto) 6.7 % Eosinophils (%) (Auto) 0.4 % Basophils (%) (Auto) 0.1 % Neutrophils # (Auto) 9.63 K/uL Lymphocytes # (Auto) 0.82 K/uL Monocytes # (Auto) 0.76 K/uL Eosinophils # (Auto) 0.04 K/uL Basophils # (Auto) 0.01 K/uL RDW Standard Deviation 59.6 fL RDW Coefficient of Variation 16.2 % Immature Granulocyte % (Auto) 0.8 % Immature Granulocyte # (Auto) 0.09 K/uL Nucleated RBC Absolute Count (auto) 0.02 K/uL Nucleated Red Blood Cells % 0.2 % Platelet Estimate DECREASED Polychromasia 1+ Prothrombin Time 12.0 SECONDS Prothromb Time International Ratio 1.1 Activated Partial Thromboplast Time 26.2 SECONDS Partial Thromboplastin Ratio 1.0 Sodium Level 145 mmol/L Potassium Level 4.0 mmol/L Chloride Level 109 mmol/L Carbon Dioxide Level 28 mmol/L Anion Gap 8.0 mmol/L Blood Urea Nitrogen 37 mg/dl Creatinine 1.80 mg/dl Est Creatinine Clear Calc Drug Dose 33.4 ml/min Estimated GFR () 38.4 Estimated GFR (Non- 33.1 BUN/Creatinine Ratio 20.4 Random Glucose 154 mg/dl Calcium Level 8.5 mg/dl Bedside Glucose 171 mg/dl 237 mg/dl 111 mg/dl Test 06/14/17 20:28 Bedside Glucose 158 mg/dl Assessment and Plan 86yo male: 1. gross hematuria - this occurred in the setting of recent mayberry catheter placement at [facility] (was difficult by history, likely due to BPH) and use of systemic anticoagulation (lovenox 1.5mg/kg per records). The hematuria has resolved with CBI and H/H remain largely stable. Appreciate urology consult. CT abd/pelvis to assess for bladder pathology was negative for such but incidentally showed a possible colonic mass with liver mets (see below). No cystoscopy planned at this time. Plan for today - urology to stop the CBI and observe. Renal u/s ordered to r/o any obstructive process. 2. acute/chronic systolic CHF - EF 20-25% by history - appears compensated today. No further IV lasix. Cont BB, oral lasix. Not candidate for CHRISTOPHER or ARB due to CKD. 3. a. fib - chronically takes digoxin, metoprolol, and amiodarone. Was NOT taking systemic anticoagulation back at [facility]. Rates acceptable at this time. Dig level acceptable. Unsure if amiodarone is being used for rate control or to try & maintain NSR. Will leave as is for now. 4. CKD stage 3 - per records from outside hospital baseline Cr is 1.5-1.8. Cr today 1.8. Repeat BMP am. 5. acute hypoxic resp failure 2nd to #2 - improving/resolving. 6. T2DM - novolog SSI for now. 7. macrocytic anemia - b12, folate normal; follow. 8. parkinsonism - continue sinemet. 9. BPH - continue finasteride & flomax. 10. DVT proph - SCDs; chemical means contraindicated due to #1. 11. vitamin D def - replace. 12. ?colonic mass with suspected liver mets - see note dated 06/13/17 detailing my discussions with pt and his son. RUQ u/s confirms numerous mets. Today patient stated he would like to obtain liver bx for definitive diagnosis. This is reasonable, even if he elects not to pursue treatment, so that he can plan the next 6-12 months of his life. Spoke with Dr. Espinal today - plan for u/s guided liver bx on Saturday. NPO after MN on Saturday evening. Last dose of aspirin was 06/10 per records and he remains off any anticoagulation /DVT proph. 13. thrombocytopenia - acceptable at this time. CBC in am for stability. 14. CAD - noted; no ischemic symptoms at this time. 15. GNR UTI - complicated UTI due to mayberry catheter - ertapenem 1gm daily due to PCN allergy. Follow cx. PT, OT leave on tele son updated by phone 06/14/17 DNR Continued [facility] stay due to: fever, voiding difficulties, ambulation difficulties, multiple IV medications needed Discharge planning: [facility] ([facility]
[2017-06-15] VITALS (8 sets, daily range): BP systolic 103–167; BP diastolic 55–69; PULSE 92–120; TEMP 37.2–38.8; O2SAT 91–94
[2017-06-15 06:55] LABS: BUN/CREATININE RATIO 20.5 (10-20); CALCIUM 8.6 mg/dl (8.5-10.1); CREATININE 1.9 mg/dl (0.60-1.40); MAGNESIUM 2.1 mg/dl (1.8-2.4); POTASSIUM 4.1 mmol/L (3.5-5.1)
[2017-06-15 07:30] LABS: BASO % 0.2 %; BASO ABS # 0.02 K/uL (0-0.2); COMPLETE YES; EOS % 0.4 %; HEMATOCRIT 28.4 % (42-52); IG% 1.4 %; LARGE PLATELETS 1+; LYMPH % 6.9 %; LYMPH ABS # 0.79 K/uL (1.2-3.4); MEAN CELL VOLUME 102.5 fL (80-100); MEAN CORPUSCULAR HEMOGLOBIN 32.1 pg (25-34); MEAN CORPUSCULAR HGB CONC 31.3 g/dl (32-36); MEAN PLATELET VOLUME 13.2 fL (7.4-10.4); MONO % 8.4 %; NEUT % 82.7 %; PLATELET COUNT 102 K/uL (130-400); PLT ESTIMATE DECREASED; RED BLOOD COUNT 2.77 M/uL (4.7-6.1); WHITE BLOOD COUNT 11.39 K/uL (4.8-10.8)
[2017-06-15] MEDS: INSULIN ASPART 100 UNITS/ML 3 ML PEN SC SCH ×4 (07:57→21:30)
[2017-06-15] MEDS: DOCUSATE SODIUM 100 MG CAP PO SCH ×2 (08:17→19:54)
[2017-06-15] MEDS: TAMSULOSIN HCL 0.4 MG CAP PO SCH (08:17)
[2017-06-15] MEDS: FERROUS GLUCONATE 324 MG TAB PO SCH (08:17)
[2017-06-15] MEDS: CEROVITE ADV FORMULA TAB PO SCH (08:17)
[2017-06-15] MEDS: LORATADINE 10 MG TAB PO SCH (08:17)
[2017-06-15] MEDS: MULTIVITAMIN TAB PO SCH (08:17)
[2017-06-15] MEDS: CALCIUM POLYCARBOPHIL 1 TAB PO SCH (08:18)
[2017-06-15] MEDS: METOPROLOL SUCC 25MG EXT REL TAB PO SCH ×2 (08:18→19:55)
[2017-06-15] MEDS: FINASTERIDE 5 MG TAB PO SCH (08:18)
[2017-06-15] MEDS: CARBIDOPA/LEVODOPA 25/100MG TAB PO SCH ×4 (08:18→19:54)
[2017-06-15] MEDS: FAMOTIDINE 20 MG TAB PO SCH ×2 (08:18→19:55)
[2017-06-15] MEDS: FUROSEMIDE 20 MG TAB PO SCH (08:19)
[2017-06-15] MEDS: AMIODARONE 200 MG TAB PO SCH ×2 (08:19→19:54)
--- NOTE | 2017-06-15 09:32 | PROGRESS NOTE ---
DATE: 06/15/2017 DATE: 06/15/2017 HISTORY OF PRESENT ILLNESS: Mr. Maurer is a very pleasant 86-year-old white male with a history of chronic combined CHF, chronic atrial fibrillation, chronic kidney disease, type 2 DM, Parkinson's disease, CAD, cardiomyopathy with an LVEF of 20% to 25% and a history of hypoxic respiratory failure, who was admitted acutely on 06/12/2017 after presenting with gross hematuria. He apparently was seen in [facility] Emergency Room for an acute exacerbation of chronic heart failure. He had a Dodd placed, which was quite atraumatic. He then developed significant hematuria. At this point, he appears compensated from a heart failure standpoint, and his urine has cleared of blood. He did grow out Klebsiella in his urinary tract, and continues to have intermittent fevers. The patient's only complaint today is being tired of being in bed. He wants to sit in a bedside chair which is certainly reasonable. He denies any focal abdominal pain, nausea, vomiting, or diaphoresis. He states that his breathing is at baseline. Denies any orthopnea or PND. No palpitations, tachypalpitations, syncope, or near syncope. PHYSICAL EXAMINATION: VITAL SIGNS: Temperature is 37.9 degrees Celsius, pulse is 102 and irregularly irregular, respiratory rate 16 and unlabored, blood pressure is 137/69. SPO2 is 93% on room air. Body weight 95 kilograms, down 1.3 kilograms from admission. GENERAL: The patient is in no acute distress. HEAD, EYES, EARS, NOSE, AND THROAT: Head is atraumatic, normocephalic. EOMs intact. Sclerae are anicteric. Face is symmetric. No perioral cyanosis. Mucous membranes moist. NECK: Without JVD. Jugular venous pressure is at the level of the clavicle sitting upright. CHEST AND LUNGS: Are with mildly diminished breath sounds in bases, otherwise clear. CARDIOVASCULAR: S1 and S2 are irregularly irregular at a rate of 100-110 beats per minute. No obvious murmurs, gallops, or rubs. ABDOMINAL EXAMINATION: Bowel sounds present. No masses, organomegaly or tenderness. EXTREMITIES: Are without clubbing, cyanosis or edema. NEUROLOGIC EXAMINATION: The patient is awake, alert and oriented. Pleasant and cooperative. Answers questions appropriately. Speech is clear. LABORATORY DATA: White blood cell count 11.39. Hemoglobin 8.9 g/dL, hematocrit 28.4%, platelet count is 102,000. Sodium is 141 mmol/L, potassium 9.1 mmol/L, BUN 39 mg/dL. Creatinine 1.90 mg/dL. Random glucose 166 mg/dL. CT SCAN OF THE ABDOMEN AND PELVIS shows multiple hepatic masses, consistent with metastatic disease until proven otherwise, small area of ill-defined soft tissue prominence right ileocolic station raising the possibility of developing lymphadenopathy, questionable thickening within the ascending colon near the ileocecal valve, possibly a colonic mass, moderate thickening of the bladder wall with surrounding fat stranding, no renal or ureteral stones, no hydronephrosis, enlarged prostate, small bilateral pleural effusions, and 2 small cystic lesions in the pancreatic body. Right upper quadrant ultrasound shows that the liver is enlarged and steatotic, numerous hypoechoic hepatic lesions, cholelithiasis with biliary sludge but no evidence of acute cholecystitis. ASSESSMENT: 1. Gross hematuria, appears to have cleared. Most likely secondary to traumatic catheter insertion. 2. Acute on chronic combined systolic and diastolic congestive heart failure, appears compensated. 3. Acute hypoxic respiratory failure, appears compensated. 4. 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 5. Ongoing Fever -- BCx x 2, add IV Levaquin.. 6. Klebsiella grew out on urinalysis. Currently on ertapenem. 7. Consider further workup of liver and colonic abnormalities. 8. Coronary artery disease, no angina pectoris or anginal equivalent symptoms. 9. Chronic atrial fibrillation with a mildly elevated ventricular response rate today. 10. Acute on chronic renal failure. PLAN: 1. As per Dr. Gil, continuous bladder infusions can be discontinued. Possibly discontinue Dodd catheter. 2. Continue ertapenem for coverage of Klebsiella in urine. 3. Ongoing fevers will need to be followed, possibly secondary to UTI, cannot rule out gallbladder source versus other. 4. Continue Toprol-XL 12.5 mg b.i.d. 5. Continue Amiodarone 200 mg b.i.d. 6. Continue Lasix 20 mg daily. 7. Continue Digoxin 125 mcg every other day. 8. Continue NovoLog sliding scale insulin. 9. BCx x 2, IV Levaquin. 9. Will continue to follow the patient clinically, and will follow his laboratories. He will remain hospitalized for the time being due to ongoing fevers, uncertain source. Attending Attestation: I agree with the liz components of [facility] Mel[facility]dez's progress note documentation. Chris Mabry MD [facility] SHOREAnnabel
[2017-06-15] MEDS: ERTAPENEM IV 1 GM in SODIUM CHLOR 0.9% AD-VAN 50ML 50 ML IV SCH (11:14)
[2017-06-15] MEDS ORDERED: METOPROLOL SUCC 25MG EXT REL TAB PO ONE (11:15)
[2017-06-15] MEDS: ACETAMINOPHEN 325 MG TAB PO PRN (11:17)
--- NOTE | 2017-06-15 11:43 | Progress Note ---
Subjective Date of Service: Jun 15, 2017. Subjective Pt evaluation today including: conversation w/ patient, conversation w/ center lead consultant Pt admitted with gross hematuria after a cath placed for chf on blood thinner.Urine is now clear Pt with hx of bph and has a stable but elevated psa ad is s/p previous negative prostate bx Ct done for hematuria shows liver mets possible colon mass.Possible liver bx Saturday for dx Pt now with fever . No hydro on ct report 2 days ago but discussed getting renal sonogram to r/o hydro again as he is developing fever of unknown origin No flank pain Objective Vital Signs Date Time Temp Pulse Resp B/P (MAP) Pulse Ox O2 Delivery O2 Flow Rate FiO2 06/15/17 11:34 38.8 120 18 167/67 (100) 93 Room Air 06/15/17 07:47 37.9 102 18 137/69 (91) 93 Room Air 06/15/17 04:29 37.6 93 18 128/66 (86) 92 Room Air 06/15/17 04:00 Room Air 06/15/17 00:10 37.8 96 18 129/55 (79) 93 Room Air 06/15/17 00:00 Room Air 06/14/17 20:00 Nasal Cannula 2.0 06/14/17 19:51 36.9 90 18 109/64 (79) 96 Room Air 06/14/17 16:00 Room Air 06/14/17 15:58 37.2 86 20 125/56 (79) 98 Nasal Cannula 2.0 06/14/17 12:00 Room Air Laboratory Results Last 24 Hours Test 06/14/17 16:27 06/14/17 20:28 06/15/17 05:36 06/15/17 06:53 Bedside Glucose 111 mg/dl 158 mg/dl 166 mg/dl White Blood Count 11.39 K/uL Red Blood Count 2.77 M/uL Hemoglobin 8.9 g/dL Hematocrit 28.4 % Mean Corpuscular Volume 102.5 fL Mean Corpuscular Hemoglobin 32.1 pg Mean Corpuscular Hemoglobin Concent 31.3 g/dl Platelet Count 102 K/uL Mean Platelet Volume 13.2 fL Neutrophils (%) (Auto) 82.7 % Lymphocytes (%) (Auto) 6.9 % Monocytes (%) (Auto) 8.4 % Eosinophils (%) (Auto) 0.4 % Basophils (%) (Auto) 0.2 % Neutrophils # (Auto) 9.42 K/uL Lymphocytes # (Auto) 0.79 K/uL Monocytes # (Auto) 0.96 K/uL Eosinophils # (Auto) 0.04 K/uL Basophils # (Auto) 0.02 K/uL RDW Standard Deviation 61.2 fL RDW Coefficient of Variation 16.3 % Immature Granulocyte % (Auto) 1.4 % Immature Granulocyte # (Auto) 0.16 K/uL Platelet Estimate DECREASED Large Platelets 1+ Sodium Level 141 mmol/L Potassium Level 4.1 mmol/L Chloride Level 106 mmol/L Carbon Dioxide Level 28 mmol/L Anion Gap 7.0 mmol/L Blood Urea Nitrogen 39 mg/dl Creatinine 1.90 mg/dl Est Creatinine Clear Calc Drug Dose 31.7 ml/min Estimated GFR () 35.9 Estimated GFR (Non- 31.0 BUN/Creatinine Ratio 20.5 Random Glucose 162 mg/dl Calcium Level 8.6 mg/dl Magnesium Level 2.1 mg/dl Test 06/15/17 11:21 Bedside Glucose 175 mg/dl Assessment and Plan Renal sonogram Dodd can be discharged from pov Continued [facility] stay due to: fever, voiding difficulties, ambulation difficulties, multiple IV medications needed Discharge planning: correction facility ([facility])
[2017-06-15] MEDS ORDERED: NURSING VERBAL MED ORDER ONE (12:00)
[2017-06-15] MEDS ORDERED: METOPROLOL TARTRATE 1 MG/ML VIAL IV PRN (12:15)
[2017-06-15] MEDS: LEVOFLOXACIN / D5W 500 MG in PREMIXED IN D5W 100 ML IV SCH (16:52)
[2017-06-15] MEDS: DIGOXIN 0.125 MG TAB PO SCH (16:54)
[2017-06-16] VITALS (8 sets, daily range): BP systolic 117–132; BP diastolic 53–68; PULSE 76–96; TEMP 36.6–37.8; O2SAT 91–96
[2017-06-16 05:56] LABS: MEAN CELL VOLUME 102.2 fL (80-100); MEAN CORPUSCULAR HEMOGLOBIN 31.8 pg (25-34); MEAN CORPUSCULAR HGB CONC 31.1 g/dl (32-36); MEAN PLATELET VOLUME 12.7 fL (7.4-10.4); PLATELET COUNT 99 K/uL (130-400); RED BLOOD COUNT 2.74 M/uL (4.7-6.1); WHITE BLOOD COUNT 11.21 K/uL (4.8-10.8)
[2017-06-16 06:16] LABS: BASO % 0.1 %; BASO ABS # 0.01 K/uL (0-0.2); COMPLETE YES; EOS % 0.1 %; GIANT PLATELETS 1+; IG% 0.9 %; LYMPH ABS # 0.79 K/uL (1.2-3.4); MONO % 11.1 %; NEUT % 80.8 %; POLYCHROMASIA 1+
[2017-06-16 06:21] LABS: BUN/CREATININE RATIO 24.1 (10-20); CALCIUM 8.6 mg/dl (8.5-10.1); POTASSIUM 4.5 mmol/L (3.5-5.1)
[2017-06-16] MEDS: INSULIN ASPART 100 UNITS/ML 3 ML PEN SC SCH ×4 (08:43→21:10)
[2017-06-16] MEDS: METOPROLOL SUCC 25MG EXT REL TAB PO SCH ×2 (08:44→19:32)
[2017-06-16] MEDS: CALCIUM POLYCARBOPHIL 1 TAB PO SCH (08:44)
[2017-06-16] MEDS: CARBIDOPA/LEVODOPA 25/100MG TAB PO SCH ×4 (08:44→19:32)
[2017-06-16] MEDS: AMIODARONE 200 MG TAB PO SCH ×2 (08:44→19:32)
[2017-06-16] MEDS: FINASTERIDE 5 MG TAB PO SCH (08:45)
[2017-06-16] MEDS: CEROVITE ADV FORMULA TAB PO SCH (08:45)
[2017-06-16] MEDS: FAMOTIDINE 20 MG TAB PO SCH ×2 (08:45→19:32)
[2017-06-16] MEDS: LORATADINE 10 MG TAB PO SCH (08:45)
[2017-06-16] MEDS: FUROSEMIDE 20 MG TAB PO SCH (08:45)
[2017-06-16] MEDS: DOCUSATE SODIUM 100 MG CAP PO SCH ×2 (08:45→19:32)
[2017-06-16] MEDS: FERROUS GLUCONATE 324 MG TAB PO SCH (08:45)
[2017-06-16] MEDS: TAMSULOSIN HCL 0.4 MG CAP PO SCH (08:46)
[2017-06-16] MEDS: MULTIVITAMIN TAB PO SCH (08:46)
[2017-06-16] MEDS: ERTAPENEM IV 1 GM in SODIUM CHLOR 0.9% AD-VAN 50ML 50 ML IV SCH (13:00)
--- NOTE | 2017-06-16 14:09 | Progress Note ---
Subjective Date of Service: Jun 16, 2017. Subjective Pt evaluation today including: conversation w/ patient, conversation w/ family , chart review, lab review pt w/o fever urine clear off cbi Objective Vital Signs Date Time Temp Pulse Resp B/P (MAP) Pulse Ox O2 Delivery O2 Flow Rate FiO2 06/16/17 11:46 36.9 88 18 118/56 (76) 96 Room Air 06/16/17 07:57 37.3 91 18 123/56 (78) 93 Room Air 06/16/17 04:00 Room Air 06/16/17 03:38 37.0 90 22 118/53 (74) 92 Room Air 06/16/17 00:07 37.8 92 19 117/55 (75) 95 Room Air 06/16/17 00:00 Room Air 06/15/17 20:00 Room Air 06/15/17 19:30 37.2 92 22 118/62 (80) 94 Room Air 06/15/17 16:54 100 06/15/17 16:19 37.6 97 20 116/58 (77) 91 Room Air 06/15/17 16:00 Room Air Laboratory Results Last 24 Hours Test 06/15/17 14:12 06/15/17 16:49 06/15/17 20:05 06/16/17 05:29 Lactic Acid Level 1.4 mmol/L Bedside Glucose 207 mg/dl 189 mg/dl White Blood Count 11.21 K/uL Red Blood Count 2.74 M/uL Hemoglobin 8.7 g/dL Hematocrit 28.0 % Mean Corpuscular Volume 102.2 fL Mean Corpuscular Hemoglobin 31.8 pg Mean Corpuscular Hemoglobin Concent 31.1 g/dl Platelet Count 99 K/uL Mean Platelet Volume 12.7 fL Neutrophils (%) (Auto) 80.8 % Lymphocytes (%) (Auto) 7.0 % Monocytes (%) (Auto) 11.1 % Eosinophils (%) (Auto) 0.1 % Basophils (%) (Auto) 0.1 % Neutrophils # (Auto) 9.06 K/uL Lymphocytes # (Auto) 0.79 K/uL Monocytes # (Auto) 1.24 K/uL Eosinophils # (Auto) 0.01 K/uL Basophils # (Auto) 0.01 K/uL RDW Standard Deviation 61.1 fL RDW Coefficient of Variation 16.5 % Immature Granulocyte % (Auto) 0.9 % Immature Granulocyte # (Auto) 0.10 K/uL Giant Platelets 1+ Polychromasia 1+ Sodium Level 138 mmol/L Potassium Level 4.5 mmol/L Chloride Level 105 mmol/L Carbon Dioxide Level 27 mmol/L Anion Gap 6.0 mmol/L Blood Urea Nitrogen 48 mg/dl Creatinine 2.00 mg/dl Est Creatinine Clear Calc Drug Dose 30.1 ml/min Estimated GFR () 33.8 Estimated GFR (Non- 29.1 BUN/Creatinine Ratio 24.1 Random Glucose 151 mg/dl Calcium Level 8.6 mg/dl Test 06/16/17 06:38 Bedside Glucose 153 mg/dl Assessment and Plan Renal sonogram not done but given clinical picture does not seem necessary Dodd can be discharged from [facility]ov f/u as previously scheduled Continued [facility] stay due to: fever, voiding difficulties, ambulation difficulties, multiple IV medications needed [place] [facility])
--- NOTE | 2017-06-16 15:13 | DIAGNOSTIC IMAGING REPORT ---
(RENAL)RETROPERITON COMP HISTORY: 86 years-old Male acute hematuria, ascending UTI COMPARISON: CT abdomen and pelvis 06/13/2017 TECHNIQUE: Multiple real-time static images of the kidneys and urinary bladder were obtained assessing grayscale appearance and color flow FINDINGS: Left kidney measures 10.7 x 5.8 x 5.0 cm. There is increased echogenicity of the renal parenchyma without hydronephrosis, focal mass or calculus. Enlarged prostate causing mass effect upon the floor the urinary bladder, measuring 7.2 x 6.4 cm. Mildly debris seen within the urinary bladder lumen. Left ureteral jet is not documented. The right kidney measures 10.9 x 4.9 x 5.5 cm and also demonstrates mildly increased echogenicity of the renal parenchyma without focal mass, hydronephrosis or calculus. Multiple hypoechoic lesions of the liver are again seen measuring up to 1.6 cm. IMPRESSION: 1. Increased echogenicity of the renal parenchyma bilaterally suggests chronic medical renal disease. No hydronephrosis or focal renal mass identified. 2. Prostatomegaly with minimal layering debris within the urinary bladder lumen. 3. Hypoechoic lesions of the right hepatic lobe are again seen, better evaluated on comparison CT. The above report was generated using voice recognition software. It may contain grammatical, syntax or spelling errors. Electronically signed by: Robe Tanner M.D. 06/16/2017 3:12 PM Dictated Date/Time: 06/16/2017 3:07 PM
--- NOTE | 2017-06-16 15:59 | Progress Note ---
Subjective Date of Service: Jun 16, 2017. Subjective pt is pleasantly confused but seems in no distress, preliminary urine culture shows klebsiella sensitive to quinalones has no complaints of chest pain or shortness of breath Review of Systems Constitutional: No fever, No chills Respiratory: No cough, No shortness of breath, No dyspnea on exertion Cardiac: No chest pain, No edema Abdomen: No pain, No nausea, No vomiting, No diarrhea Musculoskeletal: No joint pain, No muscle pain Psychiatric: No depression symptoms, No anhedonism, No anxiety Objective Vital Signs Date Time Temp Pulse Resp B/P (MAP) Pulse Ox O2 Delivery O2 Flow Rate FiO2 06/16/17 07:57 37.3 91 18 123/56 (78) 93 Room Air 06/16/17 04:00 Room Air 06/16/17 03:38 37.0 90 22 118/53 (74) 92 Room Air 06/16/17 00:07 37.8 92 19 117/55 (75) 95 Room Air 06/16/17 00:00 Room Air 06/15/17 20:00 Room Air 06/15/17 19:30 37.2 92 22 118/62 (80) 94 Room Air 06/15/17 16:54 100 06/15/17 16:19 37.6 97 20 116/58 (77) 91 Room Air 06/15/17 16:00 Room Air 06/15/17 13:50 38.8 06/15/17 12:30 Room Air 06/15/17 12:18 105 103/58 (73) 06/15/17 12:15 126 167/67 06/15/17 11:34 38.8 120 18 167/67 (100) 93 Room Air Physical Exam General Appearance: WD/WN, + mild distress Neck: supple, no JVD Respiratory/Chest: chest non-tender, lungs clear, normal breath sounds Cardiovascular: regular rate, rhythm, no murmur Abdomen: normal bowel sounds, non tender, soft Extremities: no pedal edema, no calf tenderness Neurologic/Psychiatric: alert, + disoriented Laboratory Results Last 24 Hours Test 06/15/17 11:21 06/15/17 14:12 06/15/17 16:49 06/15/17 20:05 Bedside Glucose 175 mg/dl 207 mg/dl 189 mg/dl Lactic Acid Level 1.4 mmol/L Test 06/16/17 05:29 06/16/17 06:38 White Blood Count 11.21 K/uL Red Blood Count 2.74 M/uL Hemoglobin 8.7 g/dL Hematocrit 28.0 % Mean Corpuscular Volume 102.2 fL Mean Corpuscular Hemoglobin 31.8 pg Mean Corpuscular Hemoglobin Concent 31.1 g/dl Platelet Count 99 K/uL Mean Platelet Volume 12.7 fL Neutrophils (%) (Auto) 80.8 % Lymphocytes (%) (Auto) 7.0 % Monocytes (%) (Auto) 11.1 % Eosinophils (%) (Auto) 0.1 % Basophils (%) (Auto) 0.1 % Neutrophils # (Auto) 9.06 K/uL Lymphocytes # (Auto) 0.79 K/uL Monocytes # (Auto) 1.24 K/uL Eosinophils # (Auto) 0.01 K/uL Basophils # (Auto) 0.01 K/uL RDW Standard Deviation 61.1 fL RDW Coefficient of Variation 16.5 % Immature Granulocyte % (Auto) 0.9 % Immature Granulocyte # (Auto) 0.10 K/uL Giant Platelets 1+ Polychromasia 1+ Sodium Level 138 mmol/L Potassium Level 4.5 mmol/L Chloride Level 105 mmol/L Carbon Dioxide Level 27 mmol/L Anion Gap 6.0 mmol/L Blood Urea Nitrogen 48 mg/dl Creatinine 2.00 mg/dl Est Creatinine Clear Calc Drug Dose 30.1 ml/min Estimated GFR () 33.8 Estimated GFR (Non- 29.1 BUN/Creatinine Ratio 24.1 Random Glucose 151 mg/dl Calcium Level 8.6 mg/dl Bedside Glucose 153 mg/dl Assessment and Plan 86 M with Gross hematuria, in the setting of [place] placement on anticoagulation , appears to have cleared. Most likely secondary to traumatic catheter insertion. has concurrent klebsiella uti Gross hematuria resolved, Urology has signed off, may remove mayberry Acute on chronic combined systolic and diastolic congestive heart failure, appears compensated. 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 Toprol-XL 12.5 mg b.i.d. amiodarone 200 mg b.i.d. Lasix 20 mg daily. digoxin 125 mcg every other day. UTI poa, Klebsiella grew out on urinalysis. sensitive to Levaquin Abnormal LIVEr on intake CT abdomen worrisome for possible metastatic disease, considering biopsy of liver Acute on chronic renal failure, will need to hold lasix and follow DVT prevention is contra indicated due to hematuria. Continued [facility] stay due to: fever, voiding difficulties, ambulation difficulties, multiple IV medications needed Discharge planning: long term facility ([facility] [place])
[2017-06-16] MEDS: LEVOFLOXACIN / D5W 500 MG in PREMIXED IN D5W 100 ML IV SCH (16:28)
[2017-06-16] MEDS: ACETAMINOPHEN 325 MG TAB PO PRN (21:11)
[2017-06-17] MEDS ORDERED: NURSING DECISION MEDICATION ORDER SCH (02:30)
[2017-06-17] MEDS: INSULIN ASPART 100 UNITS/ML 3 ML PEN SC SCH ×5 (06:00→20:37)
[2017-06-17 07:26] LABS: HEMATOCRIT 27.8 % (42-52); MEAN CELL VOLUME 101.5 fL (80-100); MEAN CORPUSCULAR HEMOGLOBIN 30.7 pg (25-34); MEAN CORPUSCULAR HGB CONC 30.2 g/dl (32-36); RED BLOOD COUNT 2.74 M/uL (4.7-6.1); WHITE BLOOD COUNT 11.02 K/uL (4.8-10.8)
[2017-06-17 07:35] VITALS: BP 115/70; PULSE 92; TEMP 37.1; O2SAT 93
[2017-06-17 07:42] LABS: BUN/CREATININE RATIO 26.4 (10-20); CALCIUM 8.3 mg/dl (8.5-10.1); CREATININE 2.2 mg/dl (0.60-1.40); POTASSIUM 4.3 mmol/L (3.5-5.1)
[2017-06-17] MEDS: CALCIUM POLYCARBOPHIL 1 TAB PO SCH (07:48)
[2017-06-17] MEDS: METOPROLOL SUCC 25MG EXT REL TAB PO SCH ×2 (07:48→20:07)
[2017-06-17] MEDS: FAMOTIDINE 20 MG TAB PO SCH ×2 (07:48→20:07)
[2017-06-17] MEDS: DOCUSATE SODIUM 100 MG CAP PO SCH ×2 (07:48→20:07)
[2017-06-17] MEDS: TAMSULOSIN HCL 0.4 MG CAP PO SCH (07:48)
[2017-06-17] MEDS: LORATADINE 10 MG TAB PO SCH (07:48)
[2017-06-17] MEDS: AMIODARONE 200 MG TAB PO SCH ×2 (07:48→20:07)
[2017-06-17] MEDS: CARBIDOPA/LEVODOPA 25/100MG TAB PO SCH ×4 (07:48→20:07)
[2017-06-17] MEDS: FINASTERIDE 5 MG TAB PO SCH (07:49)
[2017-06-17] MEDS: FERROUS GLUCONATE 324 MG TAB PO SCH (07:49)
[2017-06-17] MEDS: MULTIVITAMIN TAB PO SCH (07:49)
[2017-06-17] MEDS: CEROVITE ADV FORMULA TAB PO SCH (07:49)
[2017-06-17 07:50] LABS: MEAN PLATELET VOLUME 13.8 fL (7.4-10.4); PLATELET COUNT 105 K/uL (130-400)
[2017-06-17 07:51] LABS: BASO % 0.1 %; BASO ABS # 0.01 K/uL (0-0.2); COMPLETE YES; EOS % 0.3 %; IG% 1.8 %; LARGE PLATELETS 1+; LYMPH % 6.4 %; LYMPH ABS # 0.71 K/uL (1.2-3.4); MONO % 9.8 %; NEUT % 81.6 %; PLT ESTIMATE NORMAL
[2017-06-17 08:00] VITALS: O2SAT 93
--- NOTE | 2017-06-17 08:50 | Progress Note ---
Subjective Date of Service: Jun 17, 2017. Subjective Pt evaluation today including: conversation w/ patient, chart review, lab review 86 yo male with BPH and gross hematuria. Hematuria resolved. Pt reports he is voiding on his own without difficulty this morning. Denies pain. Pending a liver bx today. UC&S growing Klebsiella, sensitive to Levaquin. He has been afebrile for >24hrs. Cytology inconclusive; cannot r/o urothelial neoplasm. Review of Systems Constitutional: No fever, No chills Respiratory: No shortness of breath Cardiac: No chest pain Abdomen: No pain, No nausea, No vomiting Male : No dysuria, No hematuria Heme: No abnormal bleeding/bruising Objective Vital Signs Date Time Temp Pulse Resp B/P (MAP) Pulse Ox O2 Delivery O2 Flow Rate FiO2 06/17/17 07:35 37.1 92 20 115/70 (85) 93 Room Air 06/17/17 01:30 Room Air 06/16/17 22:53 37.2 91 20 132/62 (85) 93 Room Air 06/16/17 18:33 37.0 76 18 124/68 (86) 91 06/16/17 17:09 36.6 96 20 96 2.0 06/16/17 16:05 Room Air 06/16/17 15:23 36.6 96 20 128/56 (80) 96 Room Air 06/16/17 12:05 Room Air 06/16/17 11:46 36.9 88 18 118/56 (76) 96 Room Air Physical Exam General Appearance: no apparent distress Eyes: normal inspection ENT: hearing grossly normal Neck: no JVD Respiratory/Chest: no respiratory distress, no accessory muscle use Cardiovascular: no JVD Extremities: normal inspection Neurologic/Psychiatric: alert, normal mood/affect, oriented x 3 Skin: normal color Laboratory Results Last 24 Hours Test 06/16/17 11:23 06/16/17 16:28 06/16/17 19:42 06/17/17 06:13 Bedside Glucose 169 mg/dl 159 mg/dl 201 mg/dl 174 mg/dl Test 06/17/17 06:41 06/17/17 07:44 White Blood Count 11.02 K/uL Red Blood Count 2.74 M/uL Hemoglobin 8.4 g/dL Hematocrit 27.8 % Mean Corpuscular Volume 101.5 fL Mean Corpuscular Hemoglobin 30.7 pg Mean Corpuscular Hemoglobin Concent 30.2 g/dl Platelet Count 105 K/uL Mean Platelet Volume 13.8 fL Neutrophils (%) (Auto) 81.6 % Lymphocytes (%) (Auto) 6.4 % Monocytes (%) (Auto) 9.8 % Eosinophils (%) (Auto) 0.3 % Basophils (%) (Auto) 0.1 % Neutrophils # (Auto) 8.99 K/uL Lymphocytes # (Auto) 0.71 K/uL Monocytes # (Auto) 1.08 K/uL Eosinophils # (Auto) 0.03 K/uL Basophils # (Auto) 0.01 K/uL RDW Standard Deviation 58.9 fL RDW Coefficient of Variation 16.2 % Immature Granulocyte % (Auto) 1.8 % Immature Granulocyte # (Auto) 0.20 K/uL Platelet Estimate NORMAL Large Platelets 1+ Sodium Level 139 mmol/L Potassium Level 4.3 mmol/L Chloride Level 104 mmol/L Carbon Dioxide Level 26 mmol/L Anion Gap 9.0 mmol/L Blood Urea Nitrogen 58 mg/dl Creatinine 2.20 mg/dl Est Creatinine Clear Calc Drug Dose 27.5 ml/min Estimated GFR () 30.1 Estimated GFR (Non- 26.0 BUN/Creatinine Ratio 26.4 Random Glucose 164 mg/dl Calcium Level 8.3 mg/dl Bedside Glucose 180 mg/dl Assessment and Plan A/P: Gross hematuria, BPH, UTI AFVSS. Hematuria resolved. Will check bladder scans qshift. Straight cath for PVR >250ml. Recommend continuing Levaquin or switching to PO Cipro for 10 days of tx for UTI. Continue finasteride and tamsulosin for BPH. Will plan for outpatient f/u with Dr. Gallegos in 2 weeks. Possible cysto at that time to complete evaluation of hematuria. Plan of care would be in consideration of the pt's suspected metastatic colon cancer. Continued [facility] stay due to: voiding difficulties, ambulation difficulties, multiple IV medications needed Discharge planning: custodial facility ([facility] [place]
--- NOTE | 2017-06-17 09:58 | DIAGNOSTIC IMAGING REPORT ---
GUIDANCE NEEDLE PLACEMENT CLINICAL HISTORY: 86 years-old Male presenting with liver biopsy. TECHNIQUE: Real-time grayscale and limited color Doppler ultrasound imaging of the liver was performed for ultrasound-guided targeted liver biopsy. COMPARISON: CT from 06/13/2017 and ultrasound of the right upper quadrant from 06/14/2017. PROCEDURE: The risks, benefits, and alternatives to the procedure were discussed with the patient. Written informed consent was obtained. The patient was placed supine in ultrasound, and anterior medial left hepatic lobe lesion was localized by ultrasound and selected for fine needle aspiration. The right upper quadrant was prepped and draped in usual aseptic fashion. The lesion was targeted under ultrasound guidance with 2 passes utilizing 22-gauge needles. Specimens were reviewed by the pathologist at the time of biopsy and deep adequate for diagnosis. The patient tolerated the procedure well without immediate complication. IMPRESSION: Successful ultrasound-guided targeted fine-needle aspiration of the liver. Electronically signed by: Duy Lopez M.D. 06/17/2017 9:57 AM Dictated Date/Time: 06/17/2017 9:54 AM
--- NOTE | 2017-06-17 12:20 | Progress Note ---
Subjective Date of Service: Jun 17, 2017. Subjective Pt evaluation today including: conversation w/ patient, physical exam, chart review, lab review, review of studies, conversation w/ direct response consultant, review of inpatient medication list Sitting up in chair, report has hungry, because is in nothing by mouth liver biopsy, which was done this morning Patient' has no other complaints Hematuria resolved. reports he is voiding on his own without difficulty this morning. Review of Systems Constitutional: No fever, No chills, No sweats, No weight loss, No weakness, No fatigue, No problem reported Eyes: No worsening of vision, No eye pain, No redness, No discharge, No diplopia ENT: No hearing loss, No unusual epistaxis, No nasal symptoms, No sore throat, No tinnitus, No dental problems, No trouble swallowing Respiratory: No cough, No sputum, No wheezing, No shortness of breath, No dyspnea on exertion, No dyspnea at rest, No hemoptysis Cardiac: No chest pain, No orthopnea, No PND, No edema, No claudication, No palpitations Abdomen: No pain, No nausea, No vomiting, No diarrhea, No constipation Musculoskeletal: No joint pain, No muscle pain, No swelling, No calf pain Male : No dysuria, No urinary frequency, No incontinence, No nocturia more than once/night, No slowing stream, No hematuria Neurologic: No memory loss, No paralysis, No weakness, No numbness/tingling, No vertigo, No balance problems Psychiatric: No depression symptoms, No anhedonism, No anxiety, No insomnia, No substance abuse Heme: No abnormal bleeding/bruising, No clotting problems, No swollen lymph nodes, No night sweats Endo: No fatigue, No excessive thirst, No excessive urination Skin: No rash, No itch, No new/changing skin lesions, No color change, No bleeding Objective Vital Signs Date Time Temp Pulse Resp B/P (MAP) Pulse Ox O2 Delivery O2 Flow Rate FiO2 06/17/17 08:00 93 Room Air 06/17/17 07:35 37.1 92 20 115/70 (85) 93 Room Air 06/17/17 01:30 Room Air 06/16/17 22:53 37.2 91 20 132/62 (85) 93 Room Air 06/16/17 18:33 37.0 76 18 124/68 (86) 91 06/16/17 17:09 36.6 96 20 96 2.0 06/16/17 16:05 Room Air 06/16/17 15:23 36.6 96 20 128/56 (80) 96 Room Air Physical Exam General Appearance: WD/WN, no apparent distress, + pertinent finding (mild pale ) Eyes: normal inspection, PERRL, EOMI, sclerae normal ENT: normal ENT inspection, hearing grossly normal, pharynx normal Neck: supple, no adenopathy, thyroid normal, no JVD, no carotid bruits, trachea midline Respiratory/Chest: chest non-tender, normal breath sounds, no respiratory distress, no accessory muscle use, + decreased breath sounds Cardiovascular: regular rate, rhythm, no edema, no gallop, no JVD, no murmur Abdomen: normal bowel sounds, non tender, soft, no organomegaly, no pulsatile mass Extremities: normal range of motion, non-tender, normal inspection, no pedal edema, no calf tenderness, normal capillary refill, pelvis stable 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, no motor/sensory deficits, alert, normal mood/affect, oriented x 3 Skin: normal color, warm/dry, no rash Lymphatic: no adenopathy Laboratory Results Last 24 Hours Test 06/16/17 16:28 06/16/17 19:42 06/17/17 06:13 06/17/17 06:41 Bedside Glucose 159 mg/dl 201 mg/dl 174 mg/dl White Blood Count 11.02 K/uL Red Blood Count 2.74 M/uL Hemoglobin 8.4 g/dL Hematocrit 27.8 % Mean Corpuscular Volume 101.5 fL Mean Corpuscular Hemoglobin 30.7 pg Mean Corpuscular Hemoglobin Concent 30.2 g/dl Platelet Count 105 K/uL Mean Platelet Volume 13.8 fL Neutrophils (%) (Auto) 81.6 % Lymphocytes (%) (Auto) 6.4 % Monocytes (%) (Auto) 9.8 % Eosinophils (%) (Auto) 0.3 % Basophils (%) (Auto) 0.1 % Neutrophils # (Auto) 8.99 K/uL Lymphocytes # (Auto) 0.71 K/uL Monocytes # (Auto) 1.08 K/uL Eosinophils # (Auto) 0.03 K/uL Basophils # (Auto) 0.01 K/uL RDW Standard Deviation 58.9 fL RDW Coefficient of Variation 16.2 % Immature Granulocyte % (Auto) 1.8 % Immature Granulocyte # (Auto) 0.20 K/uL Platelet Estimate NORMAL Large Platelets 1+ Sodium Level 139 mmol/L Potassium Level 4.3 mmol/L Chloride Level 104 mmol/L Carbon Dioxide Level 26 mmol/L Anion Gap 9.0 mmol/L Blood Urea Nitrogen 58 mg/dl Creatinine 2.20 mg/dl Est Creatinine Clear Calc Drug Dose 27.5 ml/min Estimated GFR () 30.1 Estimated GFR (Non- 26.0 BUN/Creatinine Ratio 26.4 Random Glucose 164 mg/dl Calcium Level 8.3 mg/dl Test 06/17/17 07:44 06/17/17 11:44 06/17/17 12:09 Bedside Glucose 180 mg/dl 152 mg/dl Assessment and Plan 86 M admitted on 06/12/2017, with Gross hematuria, in the setting of [place] placement on anticoagulation, Resolved, Most likely secondary to traumatic catheter insertion. has concurrent klebsiella uti, currently is working on the liver metastatic disease Gross hematuria resolved, history of BPH UC&S growing Klebsiella, sensitive to Levaquin will continue Cytology inconclusive; cannot r/o urothelial neoplasm. Acute on chronic combined systolic and diastolic congestive heart failure, stable appears compensated. 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 Toprol-XL 12.5 mg b.i.d. amiodarone 200 mg b.i.d. Lasix 20 mg daily. digoxin 125 mcg every other day. UTI poa, Klebsiella grew out on urinalysis. sensitive to Levaquin, has changed Levaquin to by mouth Abnormal LIVEr on intake CT abdomen worrisome for possible metastatic disease, ear biopsy start Is anemic, possible from chronic kidney disease, has ordered stool Hemoccult and anemia panel Acute on chronic renal failure, continue hold lasix and follow Waiting for pathology report, and follow-up stool Hemoccult, GI and oncology consult if needed DVT prevention is contra indicated due to hematuria. Continued [facility] stay due to: voiding difficulties, ambulation difficulties Discharge planning: halfway facility ([facility]
[2017-06-17 13:25] LABS: FERRITIN 474.5 ng/ml (8.0-388.0)
--- NOTE | 2017-06-17 14:02 | DIAGNOSTIC IMAGING REPORT ---
CHEST 2 VIEWS ROUTINE CLINICAL HISTORY: liver metastatic disease COMPARISON STUDY: No previous studies for comparison. FINDINGS: The heart is enlarged. There is interstitial thickening. There is a 9 mm left midlung zone nodule. There are right basilar airspace opacities inflammatory versus atelectatic. There is blunting of the lateral costophrenic angles. Small effusions are suspected.[ IMPRESSION: 1. Cardiomegaly and interstitial thickening, likely secondary to mild pulmonary vascular congestion. There are small pleural effusions 2. 9 mm left midlung zone nodule Electronically signed by: Junior Carroll M.D. 06/17/2017 2:01 PM Dictated Date/Time: 06/17/2017 1:59 PM
[2017-06-17 15:13] VITALS: BP 122/67; PULSE 81; TEMP 36.8; O2SAT 98
[2017-06-17] MEDS: DIGOXIN 0.125 MG TAB PO SCH (16:12)
[2017-06-17] MEDS ORDERED: NURSING VERBAL MED ORDER ONE (20:15)
[2017-06-17 23:53] VITALS: BP 122/79; PULSE 77; TEMP 36.6; O2SAT 94
[2017-06-18] MEDS: ACETAMINOPHEN 325 MG TAB PO PRN ×3 (04:58→23:39)
[2017-06-18] MEDS: INSULIN ASPART 100 UNITS/ML 3 ML PEN SC SCH ×4 (06:30→20:25)
[2017-06-18 07:09] VITALS: BP 125/73; PULSE 90; TEMP 36.7; O2SAT 93
[2017-06-18] MEDS: FERROUS GLUCONATE 324 MG TAB PO SCH (07:57)
[2017-06-18] MEDS: TAMSULOSIN HCL 0.4 MG CAP PO SCH (07:57)
[2017-06-18] MEDS: LORATADINE 10 MG TAB PO SCH (07:57)
[2017-06-18] MEDS: MULTIVITAMIN TAB PO SCH (07:58)
[2017-06-18] MEDS: CARBIDOPA/LEVODOPA 25/100MG TAB PO SCH ×4 (07:58→19:38)
[2017-06-18] MEDS: CALCIUM POLYCARBOPHIL 1 TAB PO SCH (07:58)
[2017-06-18] MEDS: AMIODARONE 200 MG TAB PO SCH ×2 (07:58→19:39)
[2017-06-18] MEDS: DOCUSATE SODIUM 100 MG CAP PO SCH ×2 (07:58→19:39)
[2017-06-18] MEDS: FINASTERIDE 5 MG TAB PO SCH (07:58)
[2017-06-18] MEDS: CEROVITE ADV FORMULA TAB PO SCH (07:58)
[2017-06-18] MEDS: ERGOCALCIFEROL 50,000 INTER.UNIT CAP PO SCH (07:58)
[2017-06-18] MEDS: METOPROLOL SUCC 25MG EXT REL TAB PO SCH ×2 (07:58→19:39)
[2017-06-18 08:00] VITALS: O2SAT 93
[2017-06-18] MEDS: FAMOTIDINE 20 MG TAB PO SCH ×2 (08:40→19:39)
--- NOTE | 2017-06-18 10:52 | Oncology Consultation ---
Oncology/Heme Consultation Date of Consultation: Jun 18, 2017. Attending Physician: John Estrada MD, PhD Reason for Consultation: Possible hepatic metastasis History of Present Illness Mr. Fitzgerald is an 86-year-old gentleman that was admitted with a history of hematuria. He was on anticoagulation with a background history of congestive heart failure. During his evaluation a CT scan would demonstrate numerous nodules within the liver suggestive of neoplasm and yesterday a biopsy was done. He denies weight loss he denies any change in bowel habits. He has not had a colonoscopy in quite some time. He denies any nausea or vomiting. He denies any new bone pain fever or chills. He resides I believe in an assisted living arrangement Past Medical/Surgical History History of congestive heart failure Changes consistent on x-ray of the liver with possible metastatic deposits Hematuria that has resolved Family History Sister had breast cancer otherwise no definite history of cancer in the family in the first-degree relatives Social History Negative for history of smoking within the past several years and he denies significant alcohol usage Smoking Status: Never Smoker Occupation Status: retired Allergies Coded Allergies: CHRISTOPHER Inhibitors (Unverified Allergy, Unknown, Uncertain, 06/12/17) Amlodipine (Unverified Allergy, Unknown, Uncertain, 06/12/17) Atorvastatin (Unverified Allergy, Unknown, Uncertain, 06/12/17) Clonidine (Unverified Allergy, Unknown, Uncertain, 06/12/17) Felodipine (Unverified Allergy, Unknown, Uncertain, 06/12/17) Gemfibrozil (Unverified Allergy, Unknown, Uncertain, 06/12/17) Niacin (Unverified Allergy, Unknown, Uncertain, 06/12/17) Penicillins (Unverified Allergy, Unknown, Uncertain, 06/12/17) Red Dye (Unverified Allergy, Unknown, Uncertain, 06/12/17) Yellow Dye (Unverified Allergy, Unknown, Uncertain, 06/12/17) Atenolol (Unverified Adverse Reaction, Unknown, BRADYCARDIA, 06/12/17) Home Medications Scheduled Amiodarone HCl (Amiodarone HCl), 200 MG PO BID Aspirin (Aspirin EC Low Dose), 1 TAB PO DAILY Carbidopa/Levodopa (Sinemet 25MG/100MG), 1 TAB PO QID Digoxin (Digitek), 1 TAB PO Q2D Docusate Sodium (Colace), 1 CAP PO BID Famotidine (Pepcid), 1 TAB PO BID Ferrous Gluconate (Iron Supplement), 324 MG PO DAILY Fiber Laxative (Fiber Laxative), 2 TAB PO DAILY Finasteride (Proscar), 1 TAB PO DAILY Furosemide (Lasix), 20 MG PO DAILY Loratadine (Claritin), 1 TAB PO DAILY Metformin Hcl (Glucophage), 500 MG PO DAILY Metoprolol Succinate (Metoprolol Succinate ER), 0.5 TAB PO BID Multivitamins (Daily Gregg), 1 TAB PO DAILY Ocuvite Preservision (Ocuvite Preservision), 1 TAB PO DAILY Tamsulosin Hcl (Flomax), 1 CAP PO DAILY Current Inpatient Medications Current Inpatient Medications Medications (Trade) Dose Ordered Sig/Aniya Route Start Time Stop Time Status Last Admin Dose Admin Acetaminophen (Tylenol Tab) 650 mg Q4H PRN PO 06/12/17 19:00 07/12/17 18:59 06/18/17 04:58 650 MG Al Hydrox/Mg Hydrox/Simethicone (Maalox Max Susp) 15 ml Q4H PRN PO 06/12/17 19:00 07/12/17 18:59 Magnesium Hydroxide (Milk Of Magnesia Susp) 30 ml Q12H PRN PO 06/12/17 19:00 07/12/17 18:59 06/15/17 08:14 30 ML Ondansetron HCl (Zofran Inj) 4 mg Q6H PRN IV 06/12/17 19:00 07/12/17 18:59 06/15/17 12:15 4 MG Polyethylene (Miralax Powder Packet) 17 gm DAILY PRN PO 06/12/17 19:00 07/12/17 18:59 Amiodarone HCl (Cordarone Tab) 200 mg BID PO 06/12/17 21:00 07/12/17 20:59 06/18/17 07:58 200 MG Carbidopa/Levodopa (Sinemet 25/ 100MG Tab) 1 tab QID PO 06/12/17 21:00 07/12/17 20:59 06/18/17 07:58 1 TAB Digoxin (Lanoxin Tab) 0.125 mg Q2D@1600 PO 06/13/17 16:00 07/13/17 15:59 06/17/17 16:12 0.125 MG Docusate Sodium (coLACE CAP) 100 mg BID PO 06/12/17 21:00 07/12/17 20:59 06/17/17 20:07 100 MG Famotidine (Pepcid Tab) 20 mg BID PO 06/12/17 21:00 07/12/17 20:59 06/18/17 08:40 20 MG Ferrous Gluconate (Ferrous Gluconate Tab) 324 mg DAILY PO 06/13/17 09:00 07/13/17 08:59 06/18/17 07:57 324 MG Finasteride (Proscar Tab) 5 mg DAILY PO 06/13/17 09:00 07/13/17 08:59 06/18/17 07:58 5 MG Furosemide (Lasix Tab) 20 mg DAILY PO 06/13/17 09:00 07/13/17 08:59 Future Hold 06/16/17 08:45 20 MG Loratadine (Claritin Tab) 10 mg DAILY PO 06/13/17 09:00 07/13/17 08:59 06/18/17 07:57 10 MG Multivitamins (Multivitamin Tab) 1 tab DAILY PO 06/13/17 09:00 07/13/17 08:59 06/18/17 07:58 1 TAB Multivitamins/ Minerals (Multivitamin W/ Minerals Tab) 1 tab DAILY PO 06/13/17 09:00 07/13/17 08:59 06/18/17 07:58 1 TAB Tamsulosin HCl (Flomax Cap) 0.4 mg DAILY PO 06/13/17 09:00 07/13/17 08:59 06/18/17 07:57 0.4 MG Calcium Polycarbophil (Fibercon Tab) 2 tab DAILY PO 06/13/17 09:00 07/13/17 08:59 06/18/17 07:58 2 TAB Ergocalciferol (Vitamin D Cap) 50,000 interunit TuTh@0900 PO 06/13/17 11:00 07/13/17 10:59 06/18/17 07:58 50,000 INTERUNIT Metoprolol Succinate (Toprol Xl Tab) 25 mg BID PO 06/15/17 21:00 07/15/17 20:59 06/18/17 07:58 25 MG Metoprolol Tartrate (Lopressor Iv) 5 mg Q6H PRN IV 06/15/17 12:15 07/15/17 12:14 06/15/17 12:15 5 MG Levofloxacin (Levaquin Tab) 500 mg DAILY@11 PO 06/18/17 16:00 06/26/17 15:59 Insulin Aspart (novoLOG ASPART) SLIDING SCALE G... ACHS SC 06/17/17 22:00 07/17/17 05:59 Review of Systems Constitutional: Negative for weight loss, night sweats, or fever Eyes: Negative for event change of vision ENT: Negative for epistaxis, nasal discharge, sore throat, or deafness Cardiovascular: Negative for chest pain, palpitations, dizziness, diaphoresis Respiratory: Negative for new shortness of breath,hemoptysis, or purulent cough Gastrointestinal: Negative for diarrhea, hematemesis, melena, nausea, vomiting , or dyspepsia Integumentary (skin): Negative for rash or jaundice discoloration Genitourinary: Negative for urinary frequency, or dysuria Neurological: Negative for weakness, seizure activity, headache, or dizziness Lymphatic/Hematologic: Negative for petechiae, bleeding or new adenopathy Musculoskeletal: Negative for new joint or back pain Allergic/Immunologic: Negative for unusual rash or pruritis. Physical Exam Date Time Temp Pulse Resp B/P (MAP) Pulse Ox O2 Delivery O2 Flow Rate FiO2 06/18/17 08:00 93 Room Air 06/18/17 07:09 36.7 90 19 125/73 (90) 93 Room Air 06/18/17 01:18 Room Air 06/17/17 23:53 36.6 77 20 122/79 (93) 94 Room Air 06/17/17 16:12 74 06/17/17 16:00 Room Air 06/17/17 15:13 36.8 81 18 122/67 (85) 98 Room Air Constitutional: vitals are stable. 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 ENT: External examination was negative for masses. Neck: Negative for masses or palpable thyromegaly Respiratory: Lung sounds were generally clear bilaterally Cardiovascular: Heart was RRR without significant murmur, gallops aoe rubs Gastrointestinal: No palpable hepatic or splenomegaly. The abdomen was soft with normal bowel sounds. Lymphatic system: there was no palpable peripheral lymphadenopathy Musculoskeletal System: The musculoskeletal system seemed concordant with age. Skin: The skin was negative for jaundice. Neurologic exam: The exam was negative for any focal findings. Deep tendon reflexes were equal and symmetrical. Psychiatric exam: Was essentially negative with normal mood and effect. Extremities: Negative for edema or significant erythema Laboratory Results Last 24 Hours Test 06/17/17 11:44 06/17/17 12:29 06/17/17 16:24 06/17/17 20:18 Bedside Glucose 152 mg/dl 147 mg/dl 184 mg/dl Iron Level 30 mcg/dl Total Iron Binding Capacity 289 mcg/dl Ferritin 474.5 ng/ml Carcinoembryonic Antigen 0.9 ng/ml Test 06/18/17 08:16 Bedside Glucose 157 mg/dl Assessment & Plan Possible hepatic metastasis. A biopsy was done yesterday. Those results will probably be available later today or early tomorrow. Baseline chest x-ray was really unremarkable but he may need eventually a chest CT again depending on histology findings. We will wait for the biopsy results before commenting further.
--- NOTE | 2017-06-18 10:55 | Progress Note ---
Subjective Date of Service: Jun 18, 2017. Subjective Pt evaluation today including: conversation w/ patient, physical exam, chart review, lab review, review of studies, review of inpatient medication list Was reported have bilateral feet pain, which helped with Tylenol, otherwise no complaining, urology ordered postvoiding residual every shift and straight cath if postvoiding residual more than 250 mL, patient required 1 straight cath last night, No other complaint Denying any pain in the liver biopsy area Review of Systems Constitutional: No fever, No chills, No sweats, No weight loss, No weakness, No fatigue, No problem reported Eyes: No worsening of vision, No eye pain, No redness, No discharge, No diplopia ENT: No hearing loss, No unusual epistaxis, No nasal symptoms, No sore throat, No tinnitus, No dental problems, No trouble swallowing Respiratory: No cough, No sputum, No wheezing, No shortness of breath, No dyspnea on exertion, No dyspnea at rest, No hemoptysis Cardiac: No chest pain, No orthopnea, No PND, No edema, No claudication, No palpitations Abdomen: No pain, No nausea, No vomiting, No diarrhea, No constipation Musculoskeletal: No joint pain, No muscle pain, No swelling, No calf pain Male : No dysuria, No urinary frequency, No incontinence, No nocturia more than once/night, No slowing stream, No hematuria Neurologic: No memory loss, No paralysis, No weakness, No numbness/tingling, No vertigo, No balance problems Psychiatric: No depression symptoms, No anhedonism, No anxiety, No insomnia, No substance abuse Heme: No abnormal bleeding/bruising, No clotting problems, No swollen lymph nodes, No night sweats Endo: No fatigue, No excessive thirst, No excessive urination Skin: No rash, No itch, No new/changing skin lesions, No color change, No bleeding Objective Vital Signs Date Time Temp Pulse Resp B/P (MAP) Pulse Ox O2 Delivery O2 Flow Rate FiO2 06/18/17 08:00 93 Room Air 06/18/17 07:09 36.7 90 19 125/73 (90) 93 Room Air 06/18/17 01:18 Room Air 06/17/17 23:53 36.6 77 20 122/79 (93) 94 Room Air 06/17/17 16:12 74 06/17/17 16:00 Room Air 06/17/17 15:13 36.8 81 18 122/67 (85) 98 Room Air Physical Exam General Appearance: WD/WN, no apparent distress Eyes: normal inspection, PERRL, EOMI, sclerae normal ENT: normal ENT inspection, hearing grossly normal, pharynx normal Neck: supple, no adenopathy, thyroid normal, no JVD, no carotid bruits, trachea midline Respiratory/Chest: chest non-tender, normal breath sounds, no respiratory distress, no accessory muscle use, + decreased breath sounds Cardiovascular: regular rate, rhythm, no edema, no gallop, no JVD, no murmur Abdomen: normal bowel sounds, non tender, soft, no organomegaly, no pulsatile mass Extremities: normal range of motion, non-tender, normal inspection, no pedal edema, no calf tenderness, normal capillary refill, pelvis stable, + pertinent finding (bilateral feet was examined, no open wound, or any local erythema) 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, no motor/sensory deficits, alert, normal mood/affect, oriented x 3 Skin: normal color, warm/dry, no rash Lymphatic: no adenopathy Laboratory Results Last 24 Hours Test 06/17/17 11:44 06/17/17 12:29 06/17/17 16:24 06/17/17 20:18 Bedside Glucose 152 mg/dl 147 mg/dl 184 mg/dl Iron Level 30 mcg/dl Total Iron Binding Capacity 289 mcg/dl Ferritin 474.5 ng/ml Carcinoembryonic Antigen 0.9 ng/ml Test 06/18/17 08:16 Bedside Glucose 157 mg/dl Assessment and Plan 86 M admitted on 06/12/2017, with Gross hematuria, in the setting of Dodd placement on anticoagulation, Resolved, Most likely secondary to traumatic catheter insertion. has concurrent klebsiella uti, liver metastatic disease biopsy was done, pathology talk to me possible lymphoma, Gross hematuria resolved, history of BPH UTI poa, Klebsiella grew out on urinalysis. sensitive to Levaquin, has changed Levaquin to by mouth , which is continued continue Cytology inconclusive; cannot r/o urothelial neoplasm. Acute on chronic combined systolic and diastolic congestive heart failure, continue stable appears compensated. 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 Toprol-XL 12.5 mg b.i.d. amiodarone 200 mg b.i.d. Lasix 20 mg daily. digoxin 125 mcg every other day. Abnormal LIVEr on intake CT abdomen worrisome for possible metastatic disease, liver biopsy was 06/17/2017, pathology talk to me possible lymphoma Oncology consulted pending for input anemic, possible from chronic kidney disease, has ordered stool Hemoccult and anemia panel, which shows ferritin , vitamin B12 and folate acid were normal, Stool Hemoccult is pending Acute on chronic renal failure, continue hold lasix and follow Waiting for pathology report, and follow-up stool Hemoccult, follow-up oncology input Possible discharge back to [facility] tomorrow, DVT prevention is contra indicated due to hematuria. Continued [facility] stay due to: voiding difficulties, ambulation difficulties Discharge planning: senior living facility ([facility]
--- NOTE | 2017-06-18 11:13 | Progress Note ---
Subjective Date of Service: Jun 18, 2017. Subjective Pt evaluation today including: conversation w/ patient, chart review, lab review Voiding: requires PRN straight cath 86 yo male with BPH, incomplete bladder emptying, and UTI. Several PVRs since yesterday noted to be over 250ml, and as high as 917ml requiring straight cath yesterday. The pt denies any dysuria, hematuria, or much difficulty voiding today. He remains on tamsulosin and finasteride. Review of Systems Constitutional: No fever, No chills Respiratory: No shortness of breath Cardiac: No chest pain Abdomen: No pain, No nausea, No vomiting Male : No dysuria, No hematuria Heme: No abnormal bleeding/bruising Objective Vital Signs Date Time Temp Pulse Resp B/P (MAP) Pulse Ox O2 Delivery O2 Flow Rate FiO2 06/18/17 08:00 93 Room Air 06/18/17 07:09 36.7 90 19 125/73 (90) 93 Room Air 06/18/17 01:18 Room Air 06/17/17 23:53 36.6 77 20 122/79 (93) 94 Room Air 06/17/17 16:12 74 06/17/17 16:00 Room Air 06/17/17 15:13 36.8 81 18 122/67 (85) 98 Room Air Physical Exam General Appearance: no apparent distress Eyes: normal inspection ENT: hearing grossly normal Neck: no JVD Respiratory/Chest: no respiratory distress, no accessory muscle use Cardiovascular: no JVD Extremities: normal inspection Neurologic/Psychiatric: alert, normal mood/affect, oriented x 3 Skin: normal color Laboratory Results Last 24 Hours Test 06/17/17 11:44 06/17/17 12:29 06/17/17 16:24 06/17/17 20:18 Bedside Glucose 152 mg/dl 147 mg/dl 184 mg/dl Iron Level 30 mcg/dl Total Iron Binding Capacity 289 mcg/dl Ferritin 474.5 ng/ml Carcinoembryonic Antigen 0.9 ng/ml Test 06/18/17 08:16 Bedside Glucose 157 mg/dl Assessment and Plan A/P: Gross hematuria, BPH, UTI, incomplete bladder emptying AFVSS. Hematuria resolved. Continue to check bladder scans qshift. Straight cath for PVR >250ml. Will need to have Bacilio Goldstein continue this as an outpatient. If they do not have a bladder scanner available, then I recommend the initiate CIC TID and keep a record of outputs for f/u. Recommend continuing Levaquin or switching to PO Cipro for total of 10 days of tx for UTI. Continue finasteride and tamsulosin for BPH. Will plan for outpatient f/u with Dr. Gallegos in 2 weeks. Possible cysto at that time to complete evaluation of hematuria. Plan of care would be in consideration of the pt's suspected metastatic colon cancer. No further management at this time. Will arrange for outpatient f/u. Recall PRN issues. Thanks for allowing us to participate in this pt's care. Continued [facility] stay due to: voiding difficulties, ambulation difficulties Discharge planning: longterm facility ([facility]
[2017-06-18 15:25] VITALS: BP 127/71; PULSE 71; TEMP 36.6; O2SAT 97
[2017-06-18] MEDS: LEVOFLOXACIN 500 MG TAB PO SCH (15:54)
[2017-06-19 00:10] VITALS: BP 119/65; PULSE 77; TEMP 36.5; O2SAT 93
[2017-06-19] MEDS: INSULIN ASPART 100 UNITS/ML 3 ML PEN SC SCH ×3 (06:30→16:30)
[2017-06-19] MEDS: TAMSULOSIN HCL 0.4 MG CAP PO SCH (07:14)
[2017-06-19] MEDS: METOPROLOL SUCC 25MG EXT REL TAB PO SCH (07:14)
[2017-06-19] MEDS: FINASTERIDE 5 MG TAB PO SCH (07:14)
[2017-06-19] MEDS: CEROVITE ADV FORMULA TAB PO SCH (07:14)
[2017-06-19] MEDS: FERROUS GLUCONATE 324 MG TAB PO SCH (07:14)
[2017-06-19] MEDS: CARBIDOPA/LEVODOPA 25/100MG TAB PO SCH ×3 (07:14→16:35)
[2017-06-19] MEDS: LORATADINE 10 MG TAB PO SCH (07:14)
[2017-06-19] MEDS: DOCUSATE SODIUM 100 MG CAP PO SCH (07:15)
[2017-06-19] MEDS: CALCIUM POLYCARBOPHIL 1 TAB PO SCH (07:15)
[2017-06-19] MEDS: AMIODARONE 200 MG TAB PO SCH (07:15)
[2017-06-19] MEDS: MULTIVITAMIN TAB PO SCH (07:15)
[2017-06-19] MEDS: FAMOTIDINE 20 MG TAB PO SCH (07:15)
[2017-06-19] MEDS: ACETAMINOPHEN 325 MG TAB PO PRN ×2 (07:18→16:37)
[2017-06-19 08:00] VITALS: O2SAT 93
[2017-06-19 08:10] VITALS: BP 131/79; PULSE 94; TEMP 36.8; O2SAT 93
[2017-06-19 08:27] LABS: HEMATOCRIT 26.3 % (42-52); MEAN CELL VOLUME 102.3 fL (80-100); MEAN CORPUSCULAR HEMOGLOBIN 33.1 pg (25-34); MEAN CORPUSCULAR HGB CONC 32.3 g/dl (32-36); RED BLOOD COUNT 2.57 M/uL (4.7-6.1); WHITE BLOOD COUNT 7.75 K/uL (4.8-10.8)
[2017-06-19 08:42] LABS: BUN/CREATININE RATIO 29.5 (10-20); CALCIUM 8.7 mg/dl (8.5-10.1); CREATININE 1.9 mg/dl (0.60-1.40); MAGNESIUM 2.8 mg/dl (1.8-2.4); POTASSIUM 4.3 mmol/L (3.5-5.1)
[2017-06-19 09:02] LABS: MEAN PLATELET VOLUME 13.8 fL (7.4-10.4); PLATELET COUNT 103 K/uL (130-400)
[2017-06-19 09:03] LABS: BASO % 0.1 %; BASO ABS # 0.01 K/uL (0-0.2); COMPLETE YES; EOS % 0.6 %; IG% 2.8 %; LYMPH % 9.7 %; LYMPH ABS # 0.75 K/uL (1.2-3.4); MONO % 8.6 %; NEUT % 78.2 %; PLT ESTIMATE DECREASED
--- NOTE | 2017-06-19 10:00 | Hematology/Oncology Prog Note ---
Hematology/Onc Progress Note Date of Service Jun 19, 2017. Diagnoses Hepatic involvement with neoplasm History of systolic CHF Hematuria Medications Medications Administered Medications (Trade) Dose Ordered Sig/Aniya Route Start Time Stop Time Status Last Admin Dose Admin Acetaminophen (Tylenol Tab) 650 mg Q4H PRN PO 06/12/17 19:00 07/12/17 18:59 06/19/17 07:18 650 MG Magnesium Hydroxide (Milk Of Magnesia Susp) 30 ml Q12H PRN PO 06/12/17 19:00 07/12/17 18:59 06/15/17 08:14 30 ML Ondansetron HCl (Zofran Inj) 4 mg Q6H PRN IV 06/12/17 19:00 07/12/17 18:59 06/15/17 12:15 4 MG Amiodarone HCl (Cordarone Tab) 200 mg BID PO 06/12/17 21:00 07/12/17 20:59 06/19/17 07:15 200 MG Carbidopa/Levodopa (Sinemet 25/ 100MG Tab) 1 tab QID PO 06/12/17 21:00 07/12/17 20:59 06/19/17 07:14 1 TAB Digoxin (Lanoxin Tab) 0.125 mg Q2D@1600 PO 06/13/17 16:00 07/13/17 15:59 06/17/17 16:12 0.125 MG Docusate Sodium (coLACE CAP) 100 mg BID PO 06/12/17 21:00 07/12/17 20:59 06/19/17 07:15 100 MG Famotidine (Pepcid Tab) 20 mg BID PO 06/12/17 21:00 07/12/17 20:59 06/19/17 07:15 20 MG Ferrous Gluconate (Ferrous Gluconate Tab) 324 mg DAILY PO 06/13/17 09:00 07/13/17 08:59 06/19/17 07:14 324 MG Finasteride (Proscar Tab) 5 mg DAILY PO 06/13/17 09:00 07/13/17 08:59 06/19/17 07:14 5 MG Furosemide (Lasix Tab) 20 mg DAILY PO 06/13/17 09:00 07/13/17 08:59 Future Hold 06/16/17 08:45 20 MG Loratadine (Claritin Tab) 10 mg DAILY PO 06/13/17 09:00 07/13/17 08:59 06/19/17 07:14 10 MG Metoprolol Succinate (Toprol Xl Tab) 12.5 mg BID PO 06/12/17 21:00 06/15/17 09:00 DC 06/15/17 08:18 12.5 MG Multivitamins (Multivitamin Tab) 1 tab DAILY PO 06/13/17 09:00 07/13/17 08:59 06/19/17 07:15 1 TAB Multivitamins/ Minerals (Multivitamin W/ Minerals Tab) 1 tab DAILY PO 06/13/17 09:00 07/13/17 08:59 06/19/17 07:14 1 TAB Tamsulosin HCl (Flomax Cap) 0.4 mg DAILY PO 06/13/17 09:00 07/13/17 08:59 06/19/17 07:14 0.4 MG Calcium Polycarbophil (Fibercon Tab) 2 tab DAILY PO 06/13/17 09:00 07/13/17 08:59 06/19/17 07:15 2 TAB Insulin Aspart (novoLOG ASPART) SLIDING SCALE G... ACHS SC 06/12/17 21:00 06/17/17 02:26 DC 06/16/17 21:10 1 UNITS Ergocalciferol (Vitamin D Cap) 50,000 interunit TuTh@0900 PO 06/13/17 11:00 07/13/17 10:59 06/18/17 07:58 50,000 INTERUNIT Furosemide 20 mg/ Syringe 2 ml @ 4 mls/min 1600 ONCE IV 06/13/17 16:00 06/13/17 16:01 DC 06/13/17 15:28 4 MLS/MIN Ertapenem 1 gm/ Sodium Chloride 50 ml @ 120 mls/hr DAILY@1100 IV 06/14/17 11:00 06/16/17 15:57 DC 06/16/17 13:00 120 MLS/HR Metoprolol Succinate (Toprol Xl Tab) 12.5 mg NOW ONCE PO 06/15/17 11:15 06/15/17 11:16 DC 06/15/17 11:15 12.5 MG Metoprolol Succinate (Toprol Xl Tab) 25 mg BID PO 06/15/17 21:00 07/15/17 20:59 06/19/17 07:14 25 MG Metoprolol Tartrate (Lopressor Iv) 5 mg Q6H PRN IV 06/15/17 12:15 07/15/17 12:14 06/15/17 12:15 5 MG Levofloxacin 500 mg/Prmx 100 ml @ 100 mls/hr Q24H IV 06/15/17 16:00 06/17/17 11:25 DC 06/16/17 16:28 100 MLS/HR Insulin Aspart (novoLOG ASPART) SLIDING SCALE G... Q6 SC 06/17/17 06:00 06/17/17 20:30 DC 06/17/17 20:29 1 UNITS Levofloxacin (Levaquin Tab) 500 mg DAILY@11 PO 06/18/17 16:00 06/26/17 15:59 06/18/17 15:54 500 MG Insulin Aspart (novoLOG ASPART) SLIDING SCALE G... ACHS SC 06/17/17 22:00 07/17/17 05:59 06/18/17 11:49 1 UNITS Subjective He feels generally well. Offers no new complaints Review of Systems: Constitutional: Negative for night sweats, or fever Eyes: Negative for event change of vision ENT: Negative for epistaxis, nasal discharge, sore throat, or deafness Cardiovascular: Negative for chest pain, palpitations, dizziness, diaphoresis Respiratory: Negative for new shortness of breath,hemoptysis, or purulent cough Gastrointestinal: Negative for diarrhea, hematemesis, melena, nausea, vomiting , or dyspepsia Integumentary (skin): Negative for rash or jaundice discoloration Genitourinary: Negative for urinary frequency, hematuria, or dysuria Neurological: Negative for weakness, seizure activity, headache, or dizziness Lymphatic/Hematologic: Negative for petechiae, bleeding or new adenopathy Musculoskeletal: Negative for new joint or back pain Allergic/Immunologic: Negative for unusual rash or pruritis. Vital Signs Vital Signs Past 12 Hours Date Time Temp Pulse Resp B/P (MAP) Pulse Ox O2 Delivery O2 Flow Rate FiO2 06/19/17 08:10 36.8 94 20 131/79 (96) 93 06/19/17 08:00 93 Room Air 06/19/17 00:10 36.5 77 20 119/65 (83) 93 Room Air 06/18/17 23:30 Room Air Physical Exam Constitutional: vitals are stable. Eyes: Eyes are CHRISTIAN EOMI without conjuctival erythema or icterus. ENT: External examination was negative for masses. Neck: Negative for masses or palpable thyromegaly Respiratory: Lung sounds were generally clear bilaterally Cardiovascular: Heart was RRR without significant murmur, gallops aoe rubs Gastrointestinal: No palpable hepatic or splenomegaly. The abdomen was soft with normal bowel sounds. Lymphatic system: there was no palpable peripheral lymphadenopathy Musculoskeletal System: The musculoskeletal system seemed concordant with age. Skin: The skin was negative for jaundice. Neurologic exam: The exam was negative for any focal findings. Deep tendon reflexes were equal and symmetrical. Psychiatric exam: Was essentially negative with normal mood and effect. Extremities: Negative for edema erythema Laboratory Last 24 Hours Test 06/18/17 11:32 06/18/17 16:37 06/18/17 20:13 06/19/17 07:25 Bedside Glucose 191 mg/dl 99 mg/dl 140 mg/dl White Blood Count 7.75 K/uL Red Blood Count 2.57 M/uL Hemoglobin 8.5 g/dL Hematocrit 26.3 % Mean Corpuscular Volume 102.3 fL Mean Corpuscular Hemoglobin 33.1 pg Mean Corpuscular Hemoglobin Concent 32.3 g/dl Platelet Count 103 K/uL Mean Platelet Volume 13.8 fL Neutrophils (%) (Auto) 78.2 % Lymphocytes (%) (Auto) 9.7 % Monocytes (%) (Auto) 8.6 % Eosinophils (%) (Auto) 0.6 % Basophils (%) (Auto) 0.1 % Neutrophils # (Auto) 6.05 K/uL Lymphocytes # (Auto) 0.75 K/uL Monocytes # (Auto) 0.67 K/uL Eosinophils # (Auto) 0.05 K/uL Basophils # (Auto) 0.01 K/uL RDW Standard Deviation 58.9 fL RDW Coefficient of Variation 16.0 % Immature Granulocyte % (Auto) 2.8 % Immature Granulocyte # (Auto) 0.22 K/uL Platelet Estimate DECREASED Red Blood Cell Morphology Unremarkable Sodium Level 140 mmol/L Potassium Level 4.3 mmol/L Chloride Level 107 mmol/L Carbon Dioxide Level 24 mmol/L Anion Gap 9.0 mmol/L Blood Urea Nitrogen 56 mg/dl Creatinine 1.90 mg/dl Est Creatinine Clear Calc Drug Dose 31.9 ml/min Estimated GFR () 35.9 Estimated GFR (Non- 31.0 BUN/Creatinine Ratio 29.5 Random Glucose 116 mg/dl Calcium Level 8.7 mg/dl Magnesium Level 2.8 mg/dl Test 06/19/17 07:55 Bedside Glucose 134 mg/dl Assessment & Plan 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 FISH studies for [facility] BCL 2 and 6 are pending.. At this juncture we will ask for an echocardiogram in preparation for potential treatment as an outpatient. I would like to also do a bone marrow biopsy this morning and this was reviewed with the patient this morning. This procedure as well as a diagnosis was reviewed with the patient. We will arrange for follow- up in our clinic. He will need also a PET scan in our clinic will try to arrange that as an outpatient in addition. I also reviewed this this morning with Dr. Estrada. NB: 12 noon - after obtaining consent a bone marrow biopsy and aspirate was obtained from the patient's left posterior iliac crest. 1% lidocaine was used as local anesthetic. The patient tolerated procedure well. Only a small biopsy could be obtained a adequate aspirate was able to be obtained.
[2017-06-19] MEDS: LEVOFLOXACIN 500 MG TAB PO SCH (11:09)
[2017-06-19 11:53] LABS: AFP TUMOR MARKER SERUM 2.6 NG/ML (<6.1)
[2017-06-19] MEDS ORDERED: LVQ500 PO (12:50)
[2017-06-19] MEDS ORDERED: ERGO1CAP41 PO (12:50)
--- NOTE | 2017-06-19 12:57 | Discharge Instructions ---
Discharge Instructions Date of Service Jun 19, 2017. Admission Reason for Admission: Hematuria Discharge Discharge Diagnosis / Problem: Gross hematuria , lymphoma Discharge Goals Goal(s): Decrease discomfort, Improve function, Increase independence, Improve disease control, Improve nutritional status, Learn about illness, Diagnostic testing, Therapeutic intervention, Prevent Disease Progression, Specific goals Activity Recommendations Activity Limitations: resume your previous activity . Instructions / Follow-Up Instructions / Follow-Up you have Gross hematuria resolved, Continue to check bladder scans qshift, and Straight cath for PVR >250ml. Will need to have [facility] continue this as an outpatient you need to follow urologist as instructed, RN in [facility] to call for patient's appointment you need to continue oral Levaquin for 3 days you had liver biopsy and bone marrow biopsy done, please follow up with Dr. De Jesus as instructed RN in [facility] to call Dr. De Jesus 's office for patient's appointment - you need to follow up with your primary care physician in 1 week, - take medication as instructed, never overdose or any misuse, or take with alcohol, because misuse of medicine may cause organ damage or , call your primary care physician if have questions of medicaitons. - call your primary care physician OR go to local emergency room if has any fever/chill, chest pain, shortness of breathing, nausea/vomiting/abdominal pain , facial droop/slurry speech/local weakness, or if has any questions. - fall precaution - diet as instructed - you need to follow up with your subspecialist - you should understand that it is important to follow up the above instruction , and "not following the above instruction" may cause delayed or missed care of your medical conditions which may cause permanent organ damage and even . Current Hospital Diet Patient's current hospital diet: Diabetes Type 2 Diet, Low Sodium Diet (2gm Na) Discharge Diet Recommended Diet: AHA Diet (Heart Healthy), Low Sodium Diet (2gm Na) Procedures Procedures Performed: bone marrow, echo, Pending Studies Studies pending at discharge: yes List of pending studies: bone marrow, echo, Dr. De Jesus will follow up Laboratory Results Hemoglobin A1c Test 06/13/17 05:10 Range/Units Estimated Average Glucose 117 mg/dl Hemoglobin A1c 5.7 H 4.5-5.6 % Medical Emergencies . Who to Call and When: Medical Emergencies: If at any time you feel your situation is an emergency, please call 911 immediately. . Non-Emergent Contact Non-Emergency issues call your: Primary Care Provider, Oncologist, Urologist . . "Provider Documentation" section prepared by John Estrada. . VTE Core Measure Inpt VTE Proph given/why not?: Contraindicated
--- NOTE | 2017-06-19 13:12 | Discharge Instructions ---
Discharge Instructions Date of Service Jun 19, 2017. Admission Reason for Admission: Hematuria Discharge Discharge Diagnosis / Problem: Gross hematuria Discharge Goals Goal(s): Decrease discomfort, Improve function, Increase independence, Improve disease control, Improve nutritional status, Learn about illness, Diagnostic testing, Therapeutic intervention, Prevent Disease Progression, Specific goals Activity Recommendations Activity Level: Up Ad Elodia Therapies: Physical Therapy, Occupational Therapy . Additional Information Patient informed of condition: Yes Advance Directives: Yes DNR: Yes Level of Care: Skilled Communicable Disease: No Prognosis: Other (guarded) Instructions / Follow-Up Instructions / Follow-Up you have Gross hematuria resolved, Continue to check bladder scans qshift, and Straight cath for PVR >250ml Will need to have [facility] continue this as an outpatient you need to follow urologist as instructed, RN in [facility] to call for patient's appointment you need to continue oral Levaquin for 3 days you had liver biopsy and bone marrow biopsy done, please follow up with Dr. De Jesus as instructed RN in [facility] to call Dr. De Jesus 's office for patient's appointment - you need to follow up with your primary care physician in 1 week, - take medication as instructed, never overdose or any misuse, or take with alcohol, because misuse of medicine may cause organ damage or , call your primary care physician if have questions of medicaitons. - call your primary care physician OR go to local emergency room if has any fever/chill, chest pain, shortness of breathing, nausea/vomiting/abdominal pain , facial droop/slurry speech/local weakness, or if has any questions. - fall precaution - diet as instructed - you need to follow up with your subspecialist - you should understand that it is important to follow up the above instruction , and "not following the above instruction" may cause delayed or missed care of your medical conditions which may cause permanent organ damage and even . Current Hospital Diet Patient's current hospital diet: Diabetes Type 2 Diet, Low Sodium Diet (2gm Na) Discharge Diet Recommended Diet: Low Sodium Diet (2gm Na) Procedures Procedures Performed: bone marrow, echo, Pending Studies Studies pending at discharge: yes List of pending studies: bone marrow, echo, Dr. De Jesus will follow up Physician Orders On Transfer POLST Discussion: without POLST completion Laboratory Results Hemoglobin A1c Test 06/13/17 05:10 Range/Units Estimated Average Glucose 117 mg/dl Hemoglobin A1c 5.7 H 4.5-5.6 % Medical Emergencies . Who to Call and When: Medical Emergencies: If at any time you feel your situation is an emergency, please call 911 immediately. . Non-Emergent Contact Non-Emergency issues call your: Primary Care Provider, Oncologist, Urologist . . "Provider Documentation" section prepared by John Estrada. . Core Measure Problem Core Measures: None
--- NOTE | 2017-06-19 13:20 | ECHOCARDIOGRAM REPORT ---
*NOTICE TO RECEIVING DEMOCRAT AGENCY This information is strictly Confidential and protected under [place] law. [place] law prohibits you from making any further disclosure of this information unless further disclosure is expressly permitted by the written consent of the person to whom it pertains or is authorized by law. A general authorization for the release of medical or other information is not sufficient for this purpose. Hospital accepts no responsibility if the information is made available to any other person, INCLUDING THE PATIENT. Interpretation Summary * Name: REJI BALTAZAR Study Date: 06/19/2017 10:37 AM BP: 131/79 mmHg * Patient Location: [id number] HR: 89 * : 1930 (M/d/yyyy) Gender: Male Height: 70 in * Age: 86 yrs Ethnicity: [place] Weight: 212 lb * Ordering Physician: Thanh De Jesus * Referring Physician: No Doctor, Assigned * Performed By: Seema Parmar RCS * * Reason For Study: Evaluate ventricular function, Pre CHEMO * BSA: 2.1 m2 * Borderline left ventricular dilatation. * Mild left ventricular systolic dysfunction. * Mild concentric left ventricular hypertrophy. * Mild mitral regurgitation. * Trace tricuspid regurgitation. * Mildly elevated estimated right ventricular systolic pressure. * -- Conclusions -- * Aortic valve sclerosis moderate, without significant aortic valvular stenosis. Procedure Details * A two-dimensional transthoracic echocardiogram, with color flow Doppler was performed. * A two-dimensional transthoracic echocardiogram with pulsed and continuous Doppler was performed. Left Ventricle * The left ventricle is mildly dilated. * There is mild concentric left ventricular hypertrophy. * Ejection Fraction = 45-50%. * Left ventricular systolic function is mildly reduced. * Septal motion is consistent with conduction abnormality. Atria * The left atrium is mildly dilated. * Right atrium not well visualized. Mitral Valve * There is moderate to severe mitral annular calcification. * There is no mitral valve stenosis. * There is mild mitral regurgitation. Tricuspid Valve * The tricuspid valve is normal. * There is no tricuspid stenosis. * There is trace tricuspid regurgitation. * Right ventricular systolic pressure is elevated at 30-40mmHg. Aortic Valve * The aortic valve is trileaflet. * Aortic valve sclerosis moderate, without significant aortic valvular stenosis. * Aortic stenosis is absent. * No aortic regurgitation is present. Great Vessels * The aortic root is normal size. Pericardium/Pleural * There is no pericardial effusion. MMode 2D Measurements and Calculations IVSd 1.2 cm IVSs 1.4 cm LVIDd 5.7 cm LVIDs 4.1 cm LVPWd 1.2 cm LVPWs 1.3 cm IVS/LVPW 1.0 FS 27.6 % EDV(Teich) 158.8 ml ESV(Teich) 74.9 ml EF(Teich) 52.9 % EDV(cubed) 183.3 ml ESV(cubed) 69.7 ml EF(cubed) 62.0 % % IVS thick 15.7 % % LVPW thick 13.3 % LV mass(C)d 276.0 grams LV mass(C)dI 129.0 grams/m\S\2 LV mass(C)s 202.5 grams LV mass(C)sI 94.6 grams/m\S\2 CO(Teich) 7.0 l/min CI(Teich) 3.3 l/min/m\S\2 SV(Teich) 83.9 ml SI(Teich) 39.2 ml/m\S\2 CO(cubed) 9.5 l/min CI(cubed) 4.5 l/min/m\S\2 SV(cubed) 113.6 ml SI(cubed) 53.1 ml/m\S\2 Ao root diam 3.4 cm Ao root area 9.0 cm\S\2 LA dimension 4.5 cm LA/Ao 1.3 LVAd ap4 42.4 cm\S\2 LVLd ap4 9.5 cm EDV(MOD-sp4) 158.0 ml LVAs ap4 25.5 cm\S\2 LVLs ap4 7.8 cm ESV(MOD-sp4) 71.0 ml EF(MOD-sp4) 55.1 % LVAd ap2 36.7 cm\S\2 LVLd ap2 8.9 cm EDV(MOD-sp2) 127.0 ml LVAs ap2 23.4 cm\S\2 LVLs ap2 7.5 cm ESV(MOD-sp2) 63.0 ml EF(MOD-sp2) 50.4 % CO(MOD-sp4) 7.3 l/min CI(MOD-sp4) 3.4 l/min/m\S\2 SV(MOD-sp4) 87.0 ml SI(MOD-sp4) 40.7 ml/m\S\2 CO(MOD-sp2) 5.4 l/min CI(MOD-sp2) 2.5 l/min/m\S\2 SV(MOD-sp2) 64.0 ml SI(MOD-sp2) 29.9 ml/m\S\2 Doppler Measurements and Calculations TR max sean 275.9 cm/sec
[2017-06-19 13:40] VITALS: BP 131/79; PULSE 94; TEMP 36.8; O2SAT 93
[2017-06-19 15:32] VITALS: BP 112/66; PULSE 84; TEMP 36.9; O2SAT 96
[2017-06-19 16:33] VITALS: BP 145/77; PULSE 92
[2017-06-19] MEDS: DIGOXIN 0.125 MG TAB PO SCH (16:34)
--- NOTE | 2017-06-19 17:08 | Discharge Summary ---
Discharge Summary Date of Service Jun 19, 2017. Discharge Summary Admission Date: Jun 12, 2017 at 19:01 Discharge Date: Jun 19, 2017 Principal Diagnosis: liver metastatic disease Problems/Secondary Diagnoses: Gross hematuria resolved, UTI Procedures: Liver biopsy, bone marrow biopsy, echocardiogram Consultations: Oncologist Medication Reconciliation New Medications: Ergocalciferol (Vitamin D 82539 Unit) 50,000 Unit Cap 28358 INTERUNIT PO TuTh@0900 for 30 Days, CAP Levofloxacin (Levofloxacin) 500 Mg Tab 500 MG PO DAILY@11 for 3 Days, TAB Continued Medications: Amiodarone HCl (Amiodarone HCl) 200 Mg Tab 200 MG PO BID, #60 TAB Aspirin (Aspirin EC Low Dose) 81 Mg Ectab 1 TAB PO DAILY, #30 TAB Carbidopa/Levodopa (Sinemet 25MG/100MG) Tab 1 TAB PO QID, #120 TAB Digoxin (Digitek) 0.125 Mg Tab 1 TAB PO Q2D, #15 TAB Docusate Sodium (Colace) 100 Mg Cap 1 CAP PO BID for 15 Days, #30 CAP Famotidine (Pepcid) 20 Mg Tab 1 TAB PO BID for 30 Days, #60 TAB 5 Refills Ferrous Gluconate (Iron Supplement) 324 Mg Tab 324 MG PO DAILY, #30 TAB Fiber Laxative (Fiber Laxative) Ea 2 TAB PO DAILY, #60 Finasteride (Proscar) 5 Mg Tab 1 TAB PO DAILY for 90 Days, #90 TAB 1 Refill Furosemide (Lasix) 20 Mg Tab 20 MG PO DAILY, #30 TAB Loratadine (Claritin) 10 Mg Tab 1 TAB PO DAILY for 30 Days, #30 TAB 5 Refills Metformin Hcl (Glucophage) 500 Mg Tab 500 MG PO DAILY, #30 TAB Metoprolol Succinate (Metoprolol Succinate ER) 25 Mg Tabcr 0.5 TAB PO BID, #30 TABS Multivitamins (Daily Gregg) 1 Tab Tab 1 TAB PO DAILY, #30 TAB Ocuvite Preservision (Ocuvite Preservision) 1 Tab Tab 1 TAB PO DAILY, #30 TAB Tamsulosin Hcl (Flomax) 0.4 Mg Cap 1 CAP PO DAILY for 30 Days, #30 CAP 5 Refills Discharge Exam Doing well, eating lunch, no complaining, Review of Systems: Constitutional: No fever, No chills, No sweats, No weight loss, No weakness , No fatigue, No problem reported Eyes: No worsening of vision, No eye pain, No redness, No discharge, No diplopia, No problem reported ENT: No hearing loss, No unusual epistaxis, No nasal symptoms, No sore throat, No tinnitus, No dental problems, No trouble swallowing, No problem reported Respiratory: No cough, No sputum, No wheezing, No shortness of breath, No dyspnea on exertion, No dyspnea at rest, No hemoptysis, No problem reported Cardiovascular: No chest pain, No orthopnea, No PND, No edema, No claudication, No palpitations, No problem reported Abdomen: No pain, No nausea, No vomiting, No diarrhea, No constipation, No GI bleeding, No problem reported Musculoskeletal: No joint pain, No muscle pain, No swelling, No calf pain, No problem reported Genitourinary - Male: No hematuria, No dysuria, No urinary frequency, No urinary urgency, No urinary hesitancy, No urinary retention, No urinary incontinence, No penile discharge, No lesions, No impotence, No problem reported Neurologic: No memory loss, No paralysis, No weakness, No numbness/tingling , No vertigo, No balance problems, No problem reported Psychiatric: No depression symptoms, No anhedonism, No anxiety, No insomnia , No substance abuse, No problem reported Endocrine: No fatigue, No excessive thirst, No excessive urination, No problem reported Hematologic / Lymphatic: No abnormal bleeding/bruising, No clotting problems , No swollen lymph nodes, No night sweats, No problem reported Integumentary: No rash, No itch, No new/changing skin lesions, No color change, No bleeding, No problem reported Physical Exam: General Appearance: WD/WN, no apparent distress Eyes: normal inspection, PERRL ENT: normal ENT inspection, hearing grossly normal Neck: supple, no adenopathy, thyroid normal Respiratory/Chest: chest non-tender, normal breath sounds, no respiratory distress, no accessory muscle use, + decreased breath sounds Cardiovascular: regular rate, rhythm, no edema, no gallop, no JVD, no murmur , normal peripheral pulses Abdomen / GI: normal bowel sounds, non tender, soft, no organomegaly, no pulsatile mass Extremities: normal inspection, no calf tenderness, normal capillary refill , no pedal edema, normal range of motion 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 has concurrent klebsiella uti, liver metastatic disease biopsy was done, pathology talk to me possible lymphoma, Gross hematuria resolved, history of BPH Klebsiella UTI poa, Klebsiella grew out on urinalysis. sensitive to Levaquin, has changed Levaquin to by mouth , which is continued , need to continue oral Levaquin for 3 days Cytology inconclusive; cannot r/o urothelial neoplasm. Acute on chronic combined systolic and diastolic congestive heart failure, continue stable appears compensated. 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 Toprol-XL 12.5 mg b.i.d. amiodarone 200 mg b.i.d. Lasix 20 mg daily. digoxin 125 mcg every other day. Abnormal LIVEr on intake CT abdomen worrisome for possible metastatic disease, liver biopsy was 06/17/2017, pathology talked to me possible lymphoma Oncology consulted : Reviewed pathology report together, Dr. De Jesus about we' ll follow-up, he recommend echocardiogram and pulmonary biopsy, and he will follow-up the results with patient. anemic, possible from chronic kidney disease, has ordered stool Hemoccult and anemia panel, which shows ferritin , vitamin B12 and folate acid were normal, Stool Hemoccult is pending Acute on chronic renal failure, continue hold lasix and follow discharge back to [facility] , I called to patient's son, his name is Dakota, updated to him all of the patient's inflammation and care plan, he understands and agreed DVT prevention is contra indicated due to hematuria. Instructions / Follow-Up you have Gross hematuria resolved, Continue to check bladder scans qshift, and Straight cath for PVR >250ml Will need to have [facility] continue this as an outpatient you need to follow urologist as instructed, TUSHAR in [facility] to call for patient's appointment you need to continue oral Levaquin for 3 days you had liver biopsy and bone marrow biopsy done, please follow up with Dr. De Jesus as instructed RN in [facility] to call Dr. De Jesus 's office for patient's appointment - you need to follow up with your primary care physician in 1 week, - take medication as instructed, never overdose or any misuse, or take with alcohol, because misuse of medicine may cause organ damage or , call your primary care physician if have questions of medicaitons. - call your primary care physician OR go to local emergency room if has any fever/chill, chest pain, shortness of breathing, nausea/vomiting/abdominal pain , facial droop/slurry speech/local weakness, or if has any questions. - fall precaution - diet as instructed - you need to follow up with your subspecialist - you should understand that it is important to follow up the above instruction , and "not following the above instruction" may cause delayed or missed care of your medical conditions which may cause permanent organ damage and even . Total Time Spent: Greater than 30 minutes This includes examination of the patient, discharge planning, medication reconciliation, and communication with other providers. Discharge Instructions Please refer to the electronic Patient Visit Report (Discharge Instructions) for additional information. Additional Copies To Thanh De Jesus, StephanieO.; Karli Gasca
== END 2017-06-19 19:00 | DRG 435 ==
LOC: C.2E 19:01 → ENRESERV 06-16 14:55 → C.MS4W 06-16 18:15
PROVIDERS: ADMIT Family Medicine; ATTEND Hospitalist
PROC: 0FB03ZX Excision of Liver, Percutaneous Approach, Diagnostic (ICD-10-PCS; principal; 2017-06-17)
PROC: 07DR3ZX Extraction of Iliac Bone Marrow, Percutaneous Approach, Diagnostic (ICD-10-PCS; 2017-06-19)
DX: C78.7 Secondary malignant neoplasm of liver and intrahepatic bile duct (principal); J96.01 Acute respiratory failure with hypoxia; I50.43 Acute on chronic combined systolic (congestive) and diastolic (congestive) heart failure; T83.83XA Hemorrhage due to genitourinary prosthetic devices, implants and grafts, initial encounter; D68.32 Hemorrhagic disorder due to extrinsic circulating anticoagulants; N39.0 Urinary tract infection, site not specified; N17.9 Acute kidney failure, unspecified; C85.90 Non-Hodgkin lymphoma, unspecified, unspecified site; Y84.6 Urinary catheterization as the cause of abnormal reaction of the patient, or of later complication, without mention of misadventure at the time of the procedure; N40.0 Benign prostatic hyperplasia without lower urinary tract symptoms; N18.3 Chronic kidney disease, stage 3 (moderate); D63.1 Anemia in chronic kidney disease; B96.1 Klebsiella pneumoniae [K. pneumoniae] as the cause of diseases classified elsewhere; K63.89 Other specified diseases of intestine; D69.6 Thrombocytopenia, unspecified; Z66 Do not resuscitate; R97.20 Elevated prostate specific antigen [PSA]; E83.51 Hypocalcemia; I25.10 Atherosclerotic heart disease of native coronary artery without angina pectoris; I48.0 Paroxysmal atrial fibrillation; I48.2 Chronic atrial fibrillation; G20 Parkinson's disease; E78.5 Hyperlipidemia, unspecified; I25.5 Ischemic cardiomyopathy; I34.0 Nonrheumatic mitral (valve) insufficiency; Z79.82 Long term (current) use of aspirin; Z79.84 Long term (current) use of oral hypoglycemic drugs; Z82.49 Family history of ischemic heart disease and other diseases of the circulatory system; Z79.899 Other long term (current) drug therapy; Z86.59 Personal history of other mental and behavioral disorders; Y92.239 Unspecified place in hospital as the place of occurrence of the external cause